=== PATIENT | male | born 1970 | race Hispanic/Latino ===

== ENCOUNTER → 2018-04-16 19:59 | Outpatient (CLI) | payer OTHER, SELFPAY | PROVIDERS: Family Provider Family Medicine; PCP Family Medicine; Referring Provider Urology; Visit Provider Urology | DX: R30.0 Dysuria (principal) | CPT/HCPCS: 87086 ==

== ENCOUNTER 2019-01-08 15:46 | Emergency (ER) | payer OTHER, SELFPAY ==
[2019-01-08 15:51] VITALS: BP 121/73; PULSE 64; RESP 17; TEMP 36.8; O2SAT 98; BMI 26.0
--- NOTE | 2019-01-08 16:30 | RAD_ITS ---
STUDY: X-RAY - RIGHT HAND, ATTENTION INDEX FINGER REASON FOR EXAM: Male, 48 years old. Laceration TECHNIQUE: 3 view(s) of the finger were obtained. COMPARISON: None. FINDINGS: Normal metacarpal head. Normal metacarpophalangeal joint. Normal proximal phalanx. Normal middle phalanx. There is an obliquely oriented fracture through the midshaft of the distal phalanx with minor separation of fracture fragments. There also appears to be questionable hairline fracture of the phalangeal tuft Normal proximal interphalangeal joint. Normal distal interphalangeal joint. RAD/Finger(s) Min 2 Views IMPRESSION: Nondisplaced fracture of the distal phalanx of the index finger Electronically Signed: Saeid Ovalles MD at 16:57 EDT , Service support ,
--- NOTE | 2019-01-08 16:33 | ED.DCSUM_ITS ---
History of Present Illness Chief Complaint: Laceration Informant: Patient, Friend Occurred: Today Mechanism/Context: Injury - blunt injury against metal, Work Related Onset: Today - JPTA Context: Sudden Onset Timing: Continuous Quality of Pain: - - sore Location: right index finger Current Severity: Moderate Maximum Severity: Severe Worsened by: palpation, moving Relieved by: remaining still Associated Symptoms: Negative for: Parasthesia, Weakness, Loss of Funtion Narrative: Kllmv-[id number] male states he was using a drill with his right hand, the drill somehow got stuck in the torque transmitted back into his hand, twisting it and causing it to go off the drill and hit something metal. Sustained a laceration. Tetanus Immunization: <5 years - 4-5 yrs ago Past Medical History - Allergies and Home Meds Allergies/Adverse Reactions: Allergies azithromycin [From Zithromax] Allergy (Verified 01/08/19 15:54) Swelling Primary Care Physician: Minh Marcum MD [Primary Care Provider] - Past Medical History: None Smoking Status: Never smoker - Family History Maternal Family History: Reports: No pertinent history Review of Systems Musculoskeletal: Reports: Extremity Pain Skin: Reports: Wounds Neurological: Denies: Weakness, Parasthesia Physical Exam Vital Signs/Narrative: Vital Signs Temp Pulse Resp BP Pulse Ox 01/08/19 15:51 98.3 F 64 17 121/73 H 98 General: Well nourished, Well developed, - - well-appearing, nad Head: Normocephalic, Atraumatic Extremeties: Tender distal phalanx right index finger, extensor is intact but not able to fully extend; patient states he had prior injury and the extent of his extension is at baseline for him. FDP and FDS intact. There is diffuse clubbing of all fingers. Skin: Trauma - 1 cm linear laceration across the dorsum of the distal phalanx of the right index finger, it is proximal to the nail fold, however, the base of the nail is seen within the laceration and appears to have been avulsed although it is still adherent to the nailbed which appears uninjured. Neurological: Alert, Oriented x3, Cranial nerves II-XII grossly intact, Normal Strength, Normal Sensation, Normal Gait Psychological: Normal affect, Normal Mood Diagnostic/Tx/Re-eval Clinical Impression(s) from Imaging Studies Finger X-Ray 01/08/19 16:30 IMPRESSION: Nondisplaced fracture of the distal phalanx of the index finger Electronically Signed: Saeid Ovalles MD at 16:57 EDT , Service support , - Medical Decision Making Digital block was performed prior to x-ray, which showed nondisplaced fracture through the center of the distal phalanx. This is directly where the laceration is, indicating an open fracture. On a finger, it is appropriate to follow-up as an outpatient with antibiotics to prophylax against infection. The laceration was repaired however there was some difficulty in the center of it due to very thin skin as it was very near the cuticle where the base of the nail appeared to come through. However after repairing and splinting, the skin was well opposed throughout. Sutures will need out 10 to 14 days, he will follow-up prior to t hat. Prescribed Duricef and [place], given appropriate discharge instructions. Procedures - Lacerations right index finger Length: 2 cm Depth: Sub Q Shape: irreg, mostly curvilinear Prep: Sterile Conditions, Chlorhexadine Laceration repair: Digital block - using 7.5cc of plain 2% lidocaine total, Irrigated Irrigated (ml): 60 Number of Sutures/Silva: 4 Suture Information: Ethilon, Simple, 5-0 Comment: Wound was opposed as best possible. Around the curvature at the radial aspect, near the cuticle/nail, the skin was very thin and ripped, and on second attempt it was unable to hold a suture. Skin was well opposed there given the sutures around it. Tolerated well, no other complications. - Upper Extremity Splints Upper Extremity Splint: Alumifoam Splint Fabrication: Fabricated Location: Right - Neurovascularly intact distally after placement. ED Disposition - Plan for ED Patient: Disposition: Home or Assisted Living Diagnosis: Open fracture of distal phalanx of right index finger, Laceration of right index finger with damage to nail Instructions: LACERATION, Hand, FRACTURE, Finger (Open) Prescriptions: Cefadroxil Hydrate [Duricef] 500 mg PO BID 5 Days #10 cap Transmission Status: Pending to [id number] Hydrocodone Bitart/Apap 5-325 [Pela[place] 5MG-325MG] 1 tablet PO Q4H PRN PRN 2 Days #10 tablet PRN Reason: Pain Transmission Status: Received by [id number] Referrals: Minh Marcum MD [Primary Care Provider] - [facility] - As soon as possible (call for appt)
[2019-01-08 17:53] VITALS: RESP 16
== END 2019-01-08 17:54 | disposition home or self-care (01) ==
PROVIDERS: Emergency Provider Emergency Medicine; Family Provider Family Medicine; PCP Family Medicine
DX: S62.660B Nondisplaced fracture of distal phalanx of right index finger, initial encounter for open fracture (principal); W26.8XXA Contact with other sharp object(s), not elsewhere classified, initial encounter; Y93.89 Activity, other specified; Y92.89 Other specified places as the place of occurrence of the external cause; Y99.0 Civilian activity done for income or pay
CPT/HCPCS: 12001; 73140; 99284

== ENCOUNTER → 2019-03-04 16:46 | Outpatient (CLI) | payer SELFPAY ==
[2019-03-04 16:32] VITALS: BMI 25.9
--- NOTE | 2019-03-04 16:51 | RAD_ITS ---
STUDY: X-RAY - RIGHT HAND, ATTENTION second FINGER REASON FOR EXAM: Male, 48 years old. Displaced fracture of distal phalanx of second digit TECHNIQUE: 3 view(s) of the finger were obtained. COMPARISON: None. FINDINGS: There is a fracture of the second digit distal phalanx, probably not extending intra-articularly. This is only seen on one view. Middle and proximal phalanges are normal. The joints are located. RAD/Finger(s) Min 2 Views IMPRESSION: Nondisplaced anatomically aligned presumably extra-articular distal phalangeal fracture. Electronically Signed: Lina Simmons, at 17:08 EDT Tel , Service support ,
== END ==
LOC: MTRAD 16:49
PROVIDERS: Family Provider Family Medicine; PCP Family Medicine; Referring Provider Physician Assistant; Visit Provider Physician Assistant
DX: S62.630B Displaced fracture of distal phalanx of right index finger, initial encounter for open fracture (principal)
CPT/HCPCS: 73140

== ENCOUNTER → 2019-03-22 08:40 | Outpatient (CLI) | payer OTHER, SELFPAY ==
[2019-03-22 08:16] VITALS: BMI 25.9
--- NOTE | 2019-03-22 08:41 | RAD_ITS ---
STUDY: X-RAY - RIGHT HAND, ATTENTION 2 FINGER REASON FOR EXAM: Male, 48 years old. Injury, pain TECHNIQUE: 3 view(s) of the finger were obtained. COMPARISON: None. FINDINGS: Normal metacarpal head. Normal metacarpophalangeal joint. Normal proximal phalanx. Normal middle phalanx. Acute nondisplaced oblique fracture of the distal phalanx. Normal proximal interphalangeal joint. Normal distal interphalangeal joint. RAD/Finger(s) Min 2 Views IMPRESSION: Acute nondisplaced oblique fracture of the distal phalanx. Electronically Signed: Rosendo Chavez MD at 11:39 EDT Tel , Service support ,
== END ==
PROVIDERS: Family Provider Family Medicine; PCP Family Medicine; Referring Provider Orthopaedic Surgery; Visit Provider Orthopaedic Surgery
DX: S62.630B Displaced fracture of distal phalanx of right index finger, initial encounter for open fracture (principal)
CPT/HCPCS: 73140

== ENCOUNTER 2019-06-23 12:27 | Emergency (ER) | payer OTHER, SELFPAY ==
[2019-03-22 08:16] VITALS: BMI 25.9
[2019-06-23 12:28] VITALS: BP 120/71; PULSE 72; PULSE 76; RESP 17; RESP 18; TEMP 37.2; O2SAT 96; O2SAT 98; BMI 24.7
--- NOTE | 2019-06-23 13:35 | ED.DCSUM_ITS ---
History of Present Illness Narrative: 48-year-old male presents with concern for headache. States is been present for 2 weeks. States that the severity is wax and wane. States that he wakes up and goes to sleep with this headache. States he is also had a mild cough as well as myalgias. Denies any head trauma. Began after eating at work approximately 2 weeks ago. Denies a history of migraines. Seen by his primary care physician 3 days ago and advised to go to the ER if it continues. Do blood work at that time but they are unclear of the results. Any neck stiffness, fever, chills. Patient is also complaining of tingling in his left lower extremity. States it is been intermittent over this period of time. Denies any loss of motor function. Denies any vision change. <Andre Valdivia - Last Filed: 06/23/19 18:20> <Brien Carrera - Last Filed: 06/23/19 23:35> Chief Complaint: Headache Past Medical History Prior records reviewed: Yes Past Medical History: - - GERD and Barretts esophagus Surgical History: no surgical history Lives: Spouse/ Significant Other Smoking Status: Never smoker Alcohol: Occasional Drugs: None - Family History Maternal Family History: Reports: No pertinent history <Andre Valdivia - Last Filed: 06/23/19 18:20> <Brien Carrera - Last Filed: 06/23/19 23:35> - Allergies and Home Meds Allergies/Adverse Reactions: Allergies azithromycin [From Zithromax] Allergy (Verified 06/23/19 12:28) Swelling Primary Care Physician: Minh Marcum MD [Primary Care Provider] - Review of Systems General: Denies: Chills, Fever, Sweats Eyes: Denies: Visual changes - bilaterally, Diplopia ENT: Denies: Rhinorrhea, Sore throat Cardiovascular: Denies: Chest pain, Palpitations Respiratory: Denies: Dyspnea, Cough, Dyspnea on exertion Gastrointestinal: Denies: Abdominal pain, Nausea, Vomiting, Diarrhea, Melena, Hematochezia Genitourinary: Denies: Dysuria, Hematuria, Frequency Musculoskeletal: Reports: Myalgias. Denies: Back pain, Extremity Pain Skin: Denies: Rash, Wounds Neurological: Reports: Headache, Parasthesia. Denies: Weakness, Numbness <Andre Valdivia - Last Filed: 06/23/19 18:20> Physical Exam Vital Signs/Narrative: Vital Signs Temp Pulse Resp BP Pulse Ox 06/23/19 12:28 98.9 F 76 17 120/71 96 General: Well nourished, Well developed, No Acute Distress Head: Normocephalic, Atraumatic Eyes: Perrl, EOMI ENT: Moist mucous membranes, No rhinorrhea Neck: Supple, Nontender Cardiovascular: Regular rate, Regular rhythm, No murmurs Respiratory: No distress, CTA bilaterally, Chest nontender Abdomen: Soft, Nontender, Nondistended, Normal bowel sounds Back: Nontender, Normal Inspection Extremities: Nontender, No edema Skin: Normal color, No rash Neurological: Alert, Oriented x3, Cranial nerves II-XII grossly intact, Normal Strength, Normal Sensation Psychological: Normal affect, Normal Mood <Andre Valdivia - Last Filed: 06/23/19 18:20> Diagnostic/Tx/Re-eval Impressions Brain CT 06/23/19 13:37 IMPRESSION: No acute intracranial hemorrhage or mass effect. Electronically Signed: Ovidio Hazel MD ([place]) at 15:21 EST , Service support , 06/23/19 13:37 Brain/Head without Contrast [CT] Stat 06/23/19 13:42 Mucosa - Nasopharyngeal Influenza Types A,B Direct FA (MERCEDES) - Final Laboratory Results 06/23/19 06/23/19 13:50 13:50 WBC 5.2 RBC 5.00 Hgb 15.7 Hct 44.1 MCV 88.2 MCH 31.4 MCHC 35.6 RDW Std Deviation 36.1 RDW Coeff of Niko 11.4 L Plt Count 199 MPV 9.5 Immature Gran % (Auto) 0.200 Neut % (Auto) 49.2 Lymph % (Auto) 40.0 [place] % (Auto) 9.6 Eos % (Auto) 0.8 Baso % (Auto) 0.2 Absolute Neuts (auto) 2.6 Absolute Lymphs (auto) 2.09 Nucleated RBC % 0 Sodium 143 Potassium 3.7 Chloride 108 H Carbon Dioxide 33.0 H Anion Gap 2 L BUN 13 Creatinine 1.01 Estim Creat Clear Calc 88.42 Est GFR (MDRD) Af Amer 102 Est GFR (MDRD) Non-Af 84 BUN/Creatinine Ratio 12.9 Glucose 97 Calcium 8.9 - Medical Decision Making Patient appears well nontoxic. Vital signs within normal limits. No focal neurologic deficit. CT brain negative. History not consistent with subarachnoid hemorrhage. Patient first was given Tylenol as well as fluid bolus. Lab work within normal limits. Patient was then given Toradol, Reglan, and Benadryl. This did completely resolve his symptoms. Patient will be asked to follow-up with his primary care provider within the next 2 to 3 days. Asked to return for new or worsening symptoms. Patient and family agreeable and discharged home in stable condition. <Andre Valdivia - Last Filed: 06/23/19 18:20> - Medical Decision Making Patient was seen with me. I did a [id number] examination with the patient. Patient complains of a headache. Patient states the pain is diffuse across his head. Patient denies any history of migraine headaches. Patient denies any paresthesias or weakness. Patient denies any fevers or chills. Vital signs are stable. Patient is afebrile. Patient is in no acute distress. Cranial nerves II through XII are intact. Strength is 5/5 bilateral knee upper and lower extremities. There are no sensory deficits noted. Heart was regular rate and rhythm. Lungs are clear and equal bilaterally. CT scan of the brain was obtained and did not show any acute intracranial abnormality. Patient was given IV fluids. Patient was given Toradol, Reglan, and Benadryl. Patient states his headache has resolved. Patient was instructed to follow-up with his primary care physician in 5 to 7 days. Patient understood and was agreeable with the plan. All questions were answered. <Brien Carrera - Last Filed: 06/23/19 23:35> ED Disposition <Andre Valdivia - Last Filed: 06/23/19 18:20> <Brien Carrera - Last Filed: 06/23/19 23:35> - Plan for ED Patient: Disposition: Home or Assisted Living Diagnosis: Headache Instructions: HEADACHE, Unspecified Referrals: Minh Marcum MD [Primary Care Provider] -
--- NOTE | 2019-06-23 13:37 | CT_ITS ---
STUDY: CT BRAIN WITHOUT CONTRAST REASON FOR EXAM: Male, 48 years old. HEADACHE X 2 WEEKS RADIATION DOSAGE (If Supplied By Facility): CTDIvol = ( 44.99 ) mGy, DLP = ( 745.49 ) mGycm TECHNIQUE: Transaxial CT imaging of the brain was performed without administration of intravenous contrast material. Individualized dose optimization techniques were used for this CT. COMPARISON: No relevant priors. FINDINGS: Normal soft tissue structures. Normal calvarium. Normal size ventricles and extra-axial spaces for the patient''s age. Normal white matter tracts of the cerebral hemispheres. Normal basal ganglia and thalami. Normal brainstem. Normal cerebellum. There is no intracranial hemorrhage. There are no findings of an acute ischemic infarction. Normal visualized paranasal sinuses. CT/Brain/Head without Contrast IMPRESSION: No acute intracranial hemorrhage or mass effect. Electronically Signed: Ovidio Hazel MD ([place]) at 15:21 EST , Service support ,
[2019-06-23] MEDS: 0.9% Normal Saline 1,000 ML 999 ML IV (13:54)
[2019-06-23] MEDS: Acetaminophen 500 MG Tablet 1000 MG PO (13:55)
[2019-06-23 14:04] LABS: Absolute Lymphocyte Count 2.09 X10^3/uL (0.83-4.51); Absolute Neutrophil Count 2.6 X10^3/uL (2.0-7.7); Basophil# 0.01 X10^3/uL; Basophil% 0.2 % (0-1); Eosinophil# 0.04 X10^3/uL; Eosinophils% 0.8 % (0-5); Hematocrit 44.1 % (40-54); Hemoglobin 15.7 g/dL (13.0-16.5); Lymphocyte # 2.09 X10^3/ul (4.0); Mean Corp Hgb Conc 35.6 g/dL (32-36); Mean Corpuscular Hgb 31.4 pg (27.0-32.0); Mean Corpuscular Volume 88.2 fL (80-94); Mean Platelet Vol. 9.5 fl (6.2-12.0); Monocyte% 9.6 % (0-10); NRBC Flagged by Analyzer 0 % (0-5); Neutrophil # 2.57 X10^3/uL (2.7-7.7); Neutrophil % 49.2 % (47-70); Platelet Count 199 K/mm3 (150-450); RBC Distribution Width CV 11.4 % (11.6-14.6); RBC Distribution Width SD 36.1 fl (35.1-43.9); White Blood Count 5.2 K/mm3 (4.4-11.0)
[2019-06-23 14:15] LABS: Anion Gap 2 (5-15); BUN 13 mg/dL (7-18); BUN/Creat Ratio 12.9 RATIO (10-20); Calcium,Total 8.9 mg/dL (8.5-10.1); Chloride 108 mmol/L (98-107); Creatinine, Serum 1.01 mg/dL (0.70-1.30); EST Glomerular Filtration Rate 84 mL/min (>60); Est Glom Filt Rate - Afr Amer 102 mL/min (>60); Estimated Creatinine Clearance 88.42 ml/min; Glucose 97 mg/dL (74-106); Potassium 3.7 mmol/L (3.5-5.1); Sodium Level 143 mmol/L (136-145)
[2019-06-23 14:45] VITALS: RESP 18
[2019-06-23] MEDS: Metoclopramide 10 MG/2 ML Vial 5 MG IV (17:03)
[2019-06-23] MEDS: Ketorolac 15 MG/ML Vial IV (17:03)
[2019-06-23] MEDS: DiphenhydrAMINE 50 MG/ML Syringe 25 MG IV (17:03)
[2019-06-23 17:13] VITALS: RESP 18
== END 2019-06-23 18:14 | disposition home or self-care (01) ==
PROVIDERS: Emergency Provider Emergency Medicine; Family Provider Family Medicine; PCP Family Medicine
DX: R51 Headache (principal); R05 Cough; M79.10 Myalgia, unspecified site; R20.2 Paresthesia of skin; K21.9 Gastro-esophageal reflux disease without esophagitis; Z87.19 Personal history of other diseases of the digestive system
CPT/HCPCS: 70450; 80048; 85025; 87804; 96361; 96374; 96375; 99283; J7030; A4216

== ENCOUNTER 2019-09-11 03:13 | Emergency (ER) | payer OTHER, SELFPAY ==
[2019-09-11 03:14] VITALS: BP 158/87; PULSE 75; RESP 14; TEMP 36.6; O2SAT 99; BMI 24.1
--- NOTE | 2019-09-11 03:24 | RAD_ITS ---
STUDY: X-RAY CHEST REASON FOR EXAM: Male, 49 years old. Back pain with shortness of breath for 3 days. TECHNIQUE: PA and lateral chest. COMPARISON: February 09, 2017. FINDINGS: The lungs are clear and expanded. There is no demonstrated pleural abnormality. Normal size heart. Normal mediastinum and trenton. Normal visualized pulmonary arteries. Normal visualized aortic arch and descending thoracic aorta. Normal visualized thoracic spine. Normal visualized ribs, clavicles, and shoulders. There is no demonstrated abnormality of the visualized soft tissue structures of the upper abdomen. RAD/Chest PA and Lateral IMPRESSION: Normal x-ray examination of the chest. Electronically Signed: Walter Akbar MD at 3:55 EDT , Service support ,
--- NOTE | 2019-09-11 03:24 | EKG12_ITS ---
Test Reason : BACK PAIN Blood Pressure : / mmHG Vent. Rate : 063 BPM Atrial Rate : 063 BPM P-R Int : 158 ms QRS Dur : 098 ms QT Int : 398 ms P-R-T Axes : 052 003 021 degrees QTc Int : 407 ms Normal sinus rhythm Normal ECG Confirmed by LETTY SURESH, RAMIRO ([id number]), movie editor REGINALD BERRIOS ([id number]) on 09/16/2019 11:21:12 AM Referred By: GERRY Confirmed By:YARITZA SAENZ MD
--- NOTE | 2019-09-11 03:25 | ED.VIS.GEN ---
History of Present Illness Chief Complaint: Back Informant: Patient Narrative: Stated for the last 2 days he has had mid back pain. Is in the thoracic area. Is not movement related. Only bothers him if he takes a deep breath. Feels a dull sensation. Denies any chest pain. Denies shortness of breath. Denies any symptoms at rest. No home treatment. Current severity is mild. He has had this before with pneumonia but does not have any pneumonia symptoms. No injury to his back. It does not hurt to bend or twist or push on it. - Past Medical History (1) Hypokalemia Status: Acute (2) Influenza A Status: Acute (3) Laceration of right index finger without foreign body with damage to nail Status: Acute (4) Open displaced fracture of distal phalanx of right index finger Status: Acute (5) Pneumonia Status: Acute Past Medical History - Allergies and Home Meds Allergies/Adverse Reactions: Allergies azithromycin [From Zithromax] Allergy (Verified 09/11/19 03:13) Swelling Primary Care Physician: Minh Marcum MD [Primary Care Provider] - Prior records reviewed: Yes Past Medical History: - - See problem list, acid reflux Surgical History: no surgical history Smoking Status: Never smoker Alcohol: None Drugs: None - Family History Maternal Family History: Reports: No pertinent history Review of Systems General: Denies: Chills, Fever, Sweats Eyes: Denies: Visual changes - bilaterally, Diplopia ENT: Denies: Rhinorrhea, Sore throat Cardiovascular: Denies: Chest pain, Palpitations Respiratory: Denies: Dyspnea, Cough, Dyspnea on exertion Gastrointestinal: Denies: Abdominal pain, Nausea, Vomiting, Diarrhea, Melena, Hematochezia Genitourinary: Denies: Dysuria, Hematuria, Frequency Musculoskeletal: Reports: Back pain. Denies: Extremity Pain Skin: Denies: Rash, Wounds Neurological: Denies: Headache, Weakness, Numbness Physical Exam Vital Signs/Narrative: Vital Signs Temp Pulse Resp BP Pulse Ox 09/11/19 03:14 97.9 F 75 14 158/87 H 99 General: Well nourished, Well developed, No Acute Distress Head: Normocephalic, Atraumatic Eyes: Perrl, EOMI ENT: Moist mucous membranes, No rhinorrhea Neck: Supple, Nontender Cardiovascular: Regular rate, Regular rhythm, No murmurs Respiratory: No distress, CTA bilaterally, Chest nontender Abdomen: Soft, Nontender, Nondistended, Normal bowel sounds Back: Nontender, Normal Inspection Extremities: Nontender, No edema Skin: Normal color, No rash Neurological: Alert, Oriented x3, Cranial nerves II-XII grossly intact, Normal Strength, Normal Sensation Psychological: Normal affect, Normal Mood Diagnostic/Tx/Re-eval - Medical Decision Making Patient given ibuprofen. EKG and chest x-ray obtained. EKG shows sinus rhythm at a rate of 63 with no acute ischemia or arrhythmia. Chest x-ray normal. At this time the patient does not have a pneumothorax. He has all back pain worse with taking a deep breath. Is likely musculoskeletal or pleurisy versus costochondritis. Patient will continue anti-inflammatory ibuprofen at home and follow-up as an outpatient. I do not feel he has an acute emergency or needs further lab work or imaging. Patient is in agreement to follow-up as an outpatient ED Disposition - Plan for ED Patient: Disposition: Home or Assisted Living Diagnosis: Thoracic back pain Instructions: BACK PAIN (Acute or Chronic) Referrals: Minh Marcum MD [Primary Care Provider] -
--- NOTE | 2019-09-11 03:27 | ED.RN ---
NO OLD EKGS IN MUSE
[2019-09-11] MEDS: Ibuprofen 600 MG Tablet PO (03:28)
[2019-09-11 04:09] VITALS: RESP 14
== END 2019-09-11 04:20 | disposition home or self-care (01) ==
PROVIDERS: Emergency Provider Emergency Medicine; PCP Family Medicine
DX: M54.6 Pain in thoracic spine (principal); K21.9 Gastro-esophageal reflux disease without esophagitis; Z88.1 Allergy status to other antibiotic agents
CPT/HCPCS: 71046; 93005; 99283

== ENCOUNTER → 2020-07-27 15:40 | Outpatient (CLI) | payer BC, SELFPAY ==
[2020-07-27 17:18] LABS: PSA,Total - Annual Screen 0.39 ng/mL (0.00-4.00)
== END ==
PROVIDERS: PCP Family Medicine; Referring Provider Urology; Visit Provider Urology
DX: Z12.5 Encounter for screening for malignant neoplasm of prostate (principal)
CPT/HCPCS: 36415; 84153; G0103

== ENCOUNTER 2020-08-05 15:35 | Emergency (ER) | payer BC, SELFPAY ==
[2020-08-05 15:35] VITALS: BP 150/62; PULSE 71; RESP 16; TEMP 36.7; O2SAT 100
[2020-08-05 15:36] VITALS: BP 150/62; PULSE 79; RESP 16; TEMP 36.7; O2SAT 99; BMI 24.5
[2020-08-05 15:55] VITALS: O2SAT 98
--- NOTE | 2020-08-05 15:55 | EKG12_ITS ---
Test Reason : CHEST PAIN Blood Pressure : / mmHG Vent. Rate : 074 BPM Atrial Rate : 074 BPM P-R Int : 154 ms QRS Dur : 096 ms QT Int : 384 ms P-R-T Axes : 059 003 029 degrees QTc Int : 426 ms Normal sinus rhythm Normal ECG Confirmed by LETTY SURESH, RAMIRO ([id number]), editor department GUY WYNNE ([id number]) on 08/07/2020 8:43:13 AM Referred By: SERGEY ORTIZ Confirmed By:YARITZA SAENZ MD
[2020-08-05] MEDS: Mag Hydrox/Al Hydrox/Simeth 30 ML UDC PO (16:10)
--- NOTE | 2020-08-05 16:15 | ED.DCSUM_ITS ---
- ER Visit Summary Date of Service: 08/05/20 Chief Complaint: Chest pain History of Present Illness: The patient is a [address] Marcum. He reports he has left-sided chest pain began 3 days ago. Is a constant throbbing is 4-10 currently and at worst. Is worsened by nothing including exertion and deep breaths. Is relieved by vomiting. Patient reports that he is vomited multiple times. There is no been no blood in his emesis. Is not vomited today. He denies any shortness of breath or diaphoresis with this. Patient does have a history of reflux and Singh's esophagus. He reports he has had dysuria for the past 3 weeks. He went to urgent care and Dr. Cruz and had blood work and a urinalysis. He was placed on Bactrim and Aleve which she is still taking. He also reports he is taking aspirin for his dysuria. He denies any possibility of STD or insertive anal intercourse. Physical Examination: Vitals: Stable. Afebrile. General: Well-nourished and well-developed. Head: Normocephalic atraumatic. Neck: Supple, no lymphadenopathy. No JVD. Nontender. Cardiovascular: Regular rate and rhythm. No murmurs. Respiratory: No respiratory distress. Clear to auscultation bilaterally. Abdominal: Soft, nontender, nondistended, normal bowel sounds. No guarding, re bound, or peritoneal signs. Back: Nontender. Extremities: Nontender, no edema. Skin: Normal color, no rash. Neurologic: Alert and oriented ?3. Cranial nerves II through XII are intact. Normal strength and sensation. Psych: Normal affect. Test Results: EKG is sinus at [address] changes. Troponin is negative. Chem-7 is normal. CBC is normal. UA shows ketones. Clinical Impression(s) from Imaging Studies Chest X-Ray 08/05/20 16:19 IMPRESSION: No acute pulmonary process Electronically Signed: Blanco Sandoval MD at 16:34 EST , Service support , Emergency Department Course and Treatment: I suspect the patient's symptoms are more from his reflux and Singh's esophagus combined with Aleve and aspirin. He was not given aspirin p.o. He was given a GI cocktail and is resting comfortably. Treatment Plan: I have instructed the patient to continue his Protonix and Carafate. Stop taking aspirin and Aleve. Use Tylenol for pain. Follow-up with his primary care physician in 1 week for another exam. Return to the emergency department for any worsening symptoms. Disposition: To home in improved and stable condition. Impression: 1. Atypical chest pain. 2. History of Singh's esophagus. This note was generated with [employer] MOD dictation software. It may contain incorrect words, spelling, and punctuation that were not noted in review of the chart prior to signing ED Disposition - Plan for ED Patient: Instructions: ED Chest Pain, Uncertain Cause Referrals: Minh Marcum MD [Primary Care Provider] - 1 Week Print Language: Turkmen
--- NOTE | 2020-08-05 16:19 | RAD_ITS ---
STUDY: X-RAY CHEST REASON FOR EXAM: Male, 49 years old. Chest tightness x3 days TECHNIQUE: Single AP portable view of the chest. COMPARISON: None. FINDINGS: EKG leads overlie the chest The lungs are clear and expanded. There is no demonstrated pleural abnormality. Normal size heart. Normal mediastinum and trenton. Normal visualized pulmonary arteries. Normal visualized aortic arch and descending thoracic aorta. Normal visualized thoracic spine. Normal visualized ribs, clavicles, and shoulders. There is no demonstrated abnormality of the visualized soft tissue structures of the upper abdomen. RAD/Chest 1 View (Portable) IMPRESSION: No acute pulmonary process Electronically Signed: Blanco Sandoval MD at 16:34 EST , Service support ,
[2020-08-05 16:20] LABS: Bacteria 0 SEEN /hpf (None Seen); Mucous, Urine 0 SEEN /hpf (<or=2+); Red Blood Cells-Urine 0 SEEN /hpf (0-5); White Blood Cells 0 SEEN /hpf (0-5)
[2020-08-05 16:23] LABS: Color, Urine Yellow (Yellow); Glucose, Dipstick Normal (Normal); Ketone-Dipstick 5 mg/dl (Negative); Leukocyte Esterase-Dipstick Negative /ul (Negative); Nitrite-Dipstick Negative (Negative); Occult Blood-Urine Negative /ul (Negative); Protein-Dipstick Negative (Negative); Specific Gravity, Urine 1.005 (1.002-1.030); Urine Bilirubin Dipstick Negative (Negative); Urine Clarity Sl. Cloudy (Clear); Urine Urobilinogen Normal (Normal)
[2020-08-05 16:31] LABS: Absolute Lymphocyte Count 1.96 X10^3/uL (0.83-4.51); Absolute Neutrophil Count 2.7 X10^3/uL (2.0-7.7); Basophil# 0.02 X10^3/uL; Basophil% 0.4 % (0-1); Eosinophil# 0.09 X10^3/uL; Eosinophils% 1.7 % (0-5); Hematocrit 42.9 % (40-54); Hemoglobin 14.5 g/dL (13.0-16.5); Lymphocyte # 1.96 X10^3/ul (4.0); Lymphocyte % 37.5 % (19-41); Mean Corp Hgb Conc 33.8 g/dL (32-36); Mean Corpuscular Hgb 30.9 pg (27.0-32.0); Mean Corpuscular Volume 91.3 fL (80-94); Mean Platelet Vol. 9.9 fl (6.2-12.0); Monocyte# 0.47 X10^3/uL; NRBC Flagged by Analyzer 0 % (0-5); Neutrophil # 2.68 X10^3/uL (2.7-7.7); Neutrophil % 51.4 % (47-70); Platelet Count 198 K/mm3 (150-450); RBC Distribution Width CV 11.5 % (11.6-14.6); RBC Distribution Width SD 39.2 fl (35.1-43.9); White Blood Count 5.2 K/mm3 (4.4-11.0)
[2020-08-05 16:40] LABS: Anion Gap 4 (5-15); BUN 16 mg/dL (7-18); BUN/Creat Ratio 13.6 RATIO (10-20); Calcium,Total 9.4 mg/dL (8.5-10.1); Chloride 104 mmol/L (98-107); Creatinine, Serum 1.18 mg/dL (0.70-1.30); EST Glomerular Filtration Rate 70 mL/min (>60); Est Glom Filt Rate - Afr Amer 85 mL/min (>60); Estimated Creatinine Clearance 74.87 ml/min; Glucose 96 mg/dL (74-106); Sodium Level 139 mmol/L (136-145)
[2020-08-05 16:53] LABS: Amorphous Sediment 1+ PHOS; Squamous Epithelial Cells - UA 0-5 SEEN /hpf (0-5)
[2020-08-05 17:12] VITALS: BP 116/83; PULSE 72; RESP 18; O2SAT 100
== END 2020-08-05 17:15 | disposition home or self-care (01) ==
LOC: ED 16:19
PROVIDERS: Emergency Provider Emergency Medicine; PCP Family Medicine
DX: R07.89 Other chest pain (principal); Z87.19 Personal history of other diseases of the digestive system; Z79.82 Long term (current) use of aspirin; K21.9 Gastro-esophageal reflux disease without esophagitis
CPT/HCPCS: 71045; 80048; 81001; 84484; 85025; 93005; 99285; A4216

== ENCOUNTER 2020-09-19 17:47 | Emergency (ER) | payer BC, SELFPAY ==
[2020-09-19 17:49] VITALS: BP 124/70; PULSE 64; RESP 16; TEMP 36.9; O2SAT 96; BMI 23.8
--- NOTE | 2020-09-19 18:16 | EKG12_ITS ---
Test Reason : CP Blood Pressure : / mmHG Vent. Rate : 059 BPM Atrial Rate : 059 BPM P-R Int : 154 ms QRS Dur : 096 ms QT Int : 400 ms P-R-T Axes : 058 012 040 degrees QTc Int : 396 ms Sinus bradycardia Otherwise normal ECG Confirmed by LETTY SURESH, RAMIRO ([id number]), food expeditor REGINALD BERRIOS ([id number]) on 10/02/2020 3:03:39 PM Referred By: MISA Confirmed By:YARITZA SAENZ MD
[2020-09-19] MEDS: 0.9% Normal Saline 1,000 ML 1000 ML IV (18:40)
[2020-09-19] MEDS: Mag Hydrox/Al Hydrox/Simeth 30 ML UDC PO (18:41)
[2020-09-19] MEDS: Ondansetron 4 MG/2 ML Vial IV (18:41)
[2020-09-19 18:56] LABS: Absolute Lymphocyte Count 2.35 X10^3/uL (0.83-4.51); Absolute Neutrophil Count 2.1 X10^3/uL (2.0-7.7); Basophil# 0.01 X10^3/uL; Basophil% 0.2 % (0-1); Eosinophil# 0.08 X10^3/uL; Eosinophils% 1.6 % (0-5); Hematocrit 39.8 % (40-54); Lymphocyte # 2.35 X10^3/ul (4.0); Mean Corp Hgb Conc 35.2 g/dL (32-36); Mean Corpuscular Hgb 32.1 pg (27.0-32.0); Mean Corpuscular Volume 91.3 fL (80-94); Mean Platelet Vol. 9.9 fl (6.2-12.0); Monocyte# 0.49 X10^3/uL; Monocyte% 9.8 % (0-10); NRBC Flagged by Analyzer 0 % (0-5); Neutrophil # 2.06 X10^3/uL (2.7-7.7); Neutrophil % 41.2 % (47-70); Platelet Count 190 K/mm3 (150-450); RBC Distribution Width CV 11.2 % (11.6-14.6); RBC Distribution Width SD 37.6 fl (35.1-43.9); Red Blood Count 4.36 M/mm3 (4.6-6.2)
[2020-09-19 19:13] LABS: ALB/GLOB Ratio 1.4 RATIO (0.9-2.4); AST(SGOT) 14 U/L (15-37); Alanine Aminotransfer ALT/SGPT 29 U/L (16-61); Alkaline Phosphatase 75 U/L (45-117); Anion Gap 3 (5-15); BUN 16 mg/dL (7-18); BUN/Creat Ratio 13.4 RATIO (10-20); Calcium,Total 8.6 mg/dL (8.5-10.1); Chloride 107 mmol/L (98-107); Creatinine, Serum 1.19 mg/dL (0.70-1.30); EST Glomerular Filtration Rate 69 mL/min (>60); Est Glom Filt Rate - Afr Amer 84 mL/min (>60); Estimated Creatinine Clearance 73.45 ml/min; Globulin 2.8 g/dL (2.2-4.2); Glucose 112 mg/dL (74-106); Lipase 85 U/L (73-393); Potassium 3.5 mmol/L (3.5-5.1); Protein, Total 6.8 g/dL (6.4-8.2); Sodium Level 141 mmol/L (136-145)
--- NOTE | 2020-09-19 19:15 | RAD_ITS ---
HISTORY: Chest pain x 1 month ADDITIONAL HISTORY: None provided. EXAMINATION/TECHNIQUE: XR Chest 1 View AP/PA Number of images including paperwork: 1 COMPARISON: None FINDINGS: LUNGS AND PLEURA: No consolidation, mass or pleural effusion. CARDIAC SILHOUETTE: Unremarkable. MEDIASTINUM AND LEXIS: Unremarkable. UPPER ABDOMEN: Unremarkable. SKELETON AND SOFT TISSUES: No acute skeletal findings. OTHER DEVICES AND HARDWARE: None. RAD/Chest 1 View (Portable) IMPRESSION: No acute cardiopulmonary abnormality. at 2005 Reported and signed by: Fior Kwong MD Electronically Signed: Fior Kwong MD at 20:04 EDT Tel , Service support ,
[2020-09-19 19:48] VITALS: BP 120/79; PULSE 59; RESP 18; O2SAT 100
--- NOTE | 2020-09-19 19:53 | ED.VISSUMM ---
- ER Visit Summary Date of Service: 09/19/20 Chief Complaint: Chest pain and abdominal pain History of Present Illness: The patient is a [address] Marcum. He has a history of Singh's esophagus. He reports he is on Carafate and Protonix. He reports that he has had chest pain and epigastric pain has been present for a month. Is a continuous throbbing pain. Is 7 out of 10 currently and at worst. It is worsened by eating or bending. Is relieved by vomiting. He states he is vomiting approximately once a day. No blood in his emesis. No diarrhea. No melena or hematochezia. Physical Examination: Vitals: Stable. Afebrile. General: Well-nourished and well-developed. Head: Normocephalic atraumatic. Neck: Supple, no lymphadenopathy. No JVD. Nontender. Cardiovascular: Regular rate and rhythm. No murmurs. Respiratory: No respiratory distress. Clear to auscultation bilaterally. Abdominal: Soft, mild epigastric tenderness to palpation, nondistended, normal bowel sounds. No guarding, rebound, or peritoneal signs. Back: Nontender. Extremities: Nontender, no edema. Skin: Normal color, no rash. Neurologic: Alert and oriented ?3. Cranial nerves II through XII are intact. Normal strength and sensation. Psych: Normal affect. Test Results: AG sinus bradycardia [address] changes. Is unchanged from last month. Troponin is negative. Chem-7 shows a glucose of 112. LFTs show an AST of 14. Lipase is 85. CBC shows a hematocrit of 39.8, second neutrophils 41, lymphocytes 47. Chest x-ray shows no acute disease. Emergency Department Course and Treatment: Patient was treated with a GI cocktail. He is resting comfortably. Treatment Plan: Patient had endoscopy [address] Holland. He is instructed to follow-up with Dr. Holland for further evaluation to make sure there has not been progression of his Singh's esophagus and that he does not have an ulcer. Instructed continue his Carafate and Protonix. He is also given the name of Dr. Saenz here in [facility] [address] to see for endoscopy if he is unable to see Dr. Holland. Follow-up his primary care physician in 3 to 5 days for another exam. Return to the emergency department for any worsening symptoms. Disposition: To home in improved and stable condition. Impression: 1. Atypical chest pain. 2. Epigastric pain. 3. History of Singh's esophagus. This note was generated with [employer] dictation software. It may contain incorrect words, spelling, and punctuation that were not noted in review of the chart prior to signing ED Disposition - Plan for ED Patient: Instructions: ED Epigastric Pain (Uncertain Cause) Referrals: Minh Marcum MD [Primary Care Provider] - 3-5 Days Emely Saenz MD [STAFF PHYSICIAN] - Trev Holland MD [CONSULTING PHYSICIAN] - As soon as possible Print Language: Chilean
[2020-09-19 20:00] VITALS: BP 128/64; PULSE 62; RESP 16; O2SAT 98
== END 2020-09-19 20:19 | disposition home or self-care (01) ==
PROVIDERS: Emergency Provider Emergency Medicine; PCP Family Medicine
DX: R07.89 Other chest pain (principal); R10.13 Epigastric pain; R11.10 Vomiting, unspecified; Z87.19 Personal history of other diseases of the digestive system
CPT/HCPCS: 71045; 80053; 83690; 84484; 85025; 93005; 96361; 96374; 99284; J7030; A4216; J2405

== ENCOUNTER 2021-04-17 12:47 | Emergency (ER) | payer BC, SELFPAY ==
[2021-04-17 12:47] VITALS: BP 130/77; PULSE 66; RESP 18; TEMP 36.2; O2SAT 100; BMI 24.0
[2021-04-17 14:07] LABS: Bacteria 0 SEEN /hpf (None Seen); Mucous, Urine 0 SEEN /hpf (<or=2+); Red Blood Cells-Urine 0 SEEN /hpf (0-5); Squamous Epithelial Cells - UA 0 SEEN /hpf (0-5); White Blood Cells 0 SEEN /hpf (0-5)
[2021-04-17 14:09] LABS: Color, Urine Yellow (Yellow); Glucose, Dipstick Normal (Normal); Ketone-Dipstick Negative (Negative); Leukocyte Esterase-Dipstick Negative /ul (Negative); Nitrite-Dipstick Negative (Negative); Occult Blood-Urine Negative /ul (Negative); Protein-Dipstick Negative (Negative); Urine Bilirubin Dipstick Negative (Negative); Urine Clarity Clear (Clear); Urine Urobilinogen Normal (Normal); Urine pH 6.5 (5.0 - 8.0)
--- NOTE | 2021-04-17 15:39 | EDS_ITS ---
HPI History of Present Illness Chief Complaint: Complaint Detail of Chief Complaint: Dysuria and suprapubic pain x1 week Informant: patient Pain Onset: Weeks (1.5 weeks) Context: Sudden Onset Timing: Intermittent Current Severity: Moderate Maximum Severity: Moderate Worsened by: Urination Relieved by: Not urinating Appearance Lesion(s): No Genital Edema: No Related History Sexually: Inactive Unprotected Sex: No STD: No Epididymitis: No Bladder/Kidney Infection: No Enlarged Prostate: No Prostate Infection: No Prostate Cancer: No Narrative Narrative: Patient is a 50-year-old male from [place] who presents with dysuria for the past 10 days. He was seen at the [facility] urgent care. Urine was obtained and states it was normal. He states he is not sexually active. He denies history of STI. He denies history of trauma. He denies history of orchitis or epididymitis. He denies any fever, chills or night sweats. Denies weight gain or weight loss. He denies history of hepatitis. He states he had a similar presentation in the past. There was no etiology found. Prior similar symptoms: Yes Recent Illness/Hospitalization: No PFSH PFSH Medical History (Updated 04/17/21 @ 16:[address] Regis Elizabeth MD) Stomach ulcer Home Medications phenazopyridine [Pyridium] 200 mg PO TID #10 tab 04/17/21 [Rx Last Taken Unknown] Allergy/AdvReac Type Severity Reaction Status Date / Time azithromycin [From Zithromax] Allergy Swelling Verified 01/29/21 14:19 Social History (Updated 04/17/21 @ 15:[address] Regis Elizabeth MD) household members: none Smoking Status: Never smoker alcohol intake: never substance use type: does not use ROS ROS ED Constitutional Constitutional ED: Denies chills, fever(s), subjective or sweats Eyes Eyes: Denies blurry vision or change in vision ENT ENT ED: Denies ear pain, rhinorrhea or sore throat Cardiovascular Cardiovascular: Denies chest pain Respiratory/Chest Respiratory/Chest: Denies cough or dyspnea Gastrointestinal Gastrointestinal: Reports abdominal pain; Denies diarrhea, nausea or vomiting Genitourinary Genitourinary ED: Reports dysuria; Denies hematuria or urinary frequency Musculoskeletal Musculoskeletal: Denies arthralgias, back pain, myalgias or neck pain Integumentary Denies rash EXAM Physical Exam Const Vital Signs: 04/17/21 12:47 Temperature 97.1 F L Temperature Source Temporal Pulse Rate 66 Respiratory Rate 18 Blood Pressure 130/77 H Blood Pressure Mean 94 Pulse Ox 100 Oxygen Delivery Method Room Air Positive well nourished and well developed General Appearance ED: well developed and NAD; Negative for pallor HEENT normocephalic and atraumatic Eyes PERRL and EOMs intact bilaterally General Eye ED: Negative for pale conjunctiva or scleral icterus Neck supple Resp normal respiratory effort Cardio regular rate and regular rhythm Penis: normal penis and circumcised Meatus: meatus normal Scrotum: testes descended bilaterally and cremasteric reflex present; Negative for inguinal hernia, tenderness, erythema, ecchymosis, edematous, scrotal swelling, lesions or scrotal mass Testes: testicular lie normal; Negative for testicular tenderness Back/Spine no CVA tenderness Extremity normal to inspection Neuro oriented x3 and CN's II-XII intact bilaterally Sensorium / Orientation: alert Psych mental status grossly normal Skin General Skin Exam: jaundice; Negative for pallor Lesions: no lesions Rashes: no rashes MDM MDM MDM Narrative Medical decision making narrative: Patient with dysuria. This may be a chemical urethritis versus STI versus other cause. Since this has been going on for 10 days with a normal urinalysis will obtain a CBC and urine for GC and chlamydia. Lab Data Attestation: I reviewed the patient's lab results. Lab results narrative: GC chlamydia are pending. Patient was informed that the cause of his symptoms are unknown. He was referred to urologist. He was given Pyridium for his discomfort. Labs: Laboratory Results - last 24 hr 04/17/21 14:01 Urine Color Yellow Urine Clarity Clear Urine pH 6.5 Ur Specific [place] 1.010 Urine Protein Negative Urine Glucose (UA) Normal Urine Ketones Negative Urine Occult Blood Negative Urine Nitrite Negative Urine Bilirubin Negative Urine Urobilinogen Normal Ur Leukocyte Esterase Negative Urine RBC 0 SEEN Urine WBC 0 SEEN Ur Squamous Epith Cells 0 SEEN Urine Bacteria 0 SEEN Urine Mucus 0 SEEN Discharge Plan Triage Chief Complaint: Complaint ED Provider: Regis Elizabeth Dx/Rx/DC Orders Clinical Impression: Dysuria Instructions: ED Dysuria, Uncertain Cause (Adult) Prescriptions: New phenazopyridine [Pyridium] 200 MG tablet 200 mg PO TID Qty: 10 RF: 0 Primary Care Provider: Minh Marcum Referrals: Naveed Cruz MD [STAFF PHYSICIAN] - 3-5 Days Minh Marcum MD [Primary Care Provider] - Disposition Disposition: Home, Self Care
[2021-04-17 16:53] VITALS: PULSE 62; RESP 15; O2SAT 98
[2021-04-17 17:33] LABS: Chlamydia Trachomatis by PCR Negative (Negative); Neisserai gonorrhoeae by PCR Negative (Negative); Probe Check PASS; Sample Adequacy Control PASS; Specimen Processing Control PASS
== END 2021-04-17 16:53 | disposition home or self-care (01) ==
PROVIDERS: Emergency Provider Emergency Medicine; PCP Family Medicine
DX: R30.0 Dysuria (principal); R10.2 Pelvic and perineal pain
CPT/HCPCS: 81001; 87491; 87591; 99282

== ENCOUNTER 2021-08-15 10:17 | Emergency (ER) | payer BC, SELFPAY ==
[2021-08-15 10:18] VITALS: BP 128/75; PULSE 73; RESP 16; TEMP 36.8; O2SAT 100; BMI 22.8
--- NOTE | 2021-08-15 11:38 | EKG12_ITS ---
Test Reason : CP Blood Pressure : / mmHG Vent. Rate : 058 BPM Atrial Rate : 058 BPM P-R Int : 152 ms QRS Dur : 090 ms QT Int : 404 ms P-R-T Axes : 062 -01 039 degrees QTc Int : 396 ms Sinus bradycardia Otherwise normal ECG Confirmed by JACINTO SURESH, CARINA ([id number]), editor newspaper GUY WYNNE ([id number]) on 08/18/2021 12:55:51 PM Referred By: BETTIE/TORRI Confirmed By:CARINA CASEY MD
--- NOTE | 2021-08-15 11:38 | RAD_ITS ---
STUDY: X-RAY CHEST REASON FOR EXAM: Male, 51 years old. chest pain TECHNIQUE: Single AP portable view of the chest. COMPARISON: 09/19/2020 FINDINGS: The lungs are clear and expanded. There is no demonstrated pleural abnormality. Normal size heart. Normal mediastinum and [place]. Normal visualized pulmonary arteries. Normal visualized aortic arch and descending thoracic aorta. Normal visualized thoracic spine. Normal visualized ribs, clavicles, and shoulders. There is no demonstrated abnormality of the visualized soft tissue structures of the upper abdomen. RAD/Chest 1 View (Portable) IMPRESSION: Normal x-ray examination of the chest. Electronically Signed: Rosendo Chavez MD at 12:39 EST ,
[2021-08-15 12:17] VITALS: BP 114/80; PULSE 60; RESP 20; O2SAT 98
[2021-08-15 12:35] LABS: Absolute Lymphocyte Count 2.25 X10^3/uL (0.83-4.51); Absolute Neutrophil Count 1.7 X10^3/uL (2.0-7.7); Basophil# 0.02 X10^3/uL; Basophil% 0.4 % (0-1); Eosinophil# 0.09 X10^3/uL; Hematocrit 43.2 % (40-54); Hemoglobin 15.6 g/dL (13.0-16.5); Lymphocyte # 2.25 X10^3/ul (0.83-4.51); Lymphocyte % 48.9 % (19-41); Mean Corp Hgb Conc 36.1 g/dL (32-36); Mean Corpuscular Hgb 32.1 pg (27.0-32.0); Mean Corpuscular Volume 88.9 fL (80-94); Mean Platelet Vol. 10.2 fl (6.2-12.0); Monocyte# 0.49 X10^3/uL; Monocyte% 10.7 % (0-10); NRBC Flagged by Analyzer 0 % (0-5); Neutrophil # 1.74 X10^3/uL (2.7-7.7); Neutrophil % 37.8 % (47-70); Platelet Count 206 K/mm3 (150-450); RBC Distribution Width CV 11.5 % (11.6-14.6); RBC Distribution Width SD 36.9 fl (35.1-43.9); Red Blood Count 4.86 M/mm3 (4.6-6.2); White Blood Count 4.6 K/mm3 (4.4-11.0)
--- NOTE | 2021-08-15 12:38 | EDS_ITS ---
HPI History of Present Illness Chief Complaint: Chest Pain Narrative Narrative: 51-year-old male presenting with chest pain. He states on the left side of his chest and sometimes it feels like pinching and other times it feels like a mild ache. This last for seconds. He has no associated symptoms of nausea, diaphoresis, lightheadedness. He denies a cardiac history. He admits to having a small hiatal hernia. At times this does make him nauseous but is not associated with his chest pain. He is not had fever, chills, cough. He does not have abdominal pain. No history of DVT/PE and no risk factors. [facility] Medical History (Updated 08/15/21 @ 10:41 by Chayo Shah) GERD (gastroesophageal reflux disease) Stomach ulcer Home Medications pantoprazole 40 mg PO DAILY 08/15/21 [History Last Taken Unknown] sucralfate 1 g PO BID 08/15/21 [History Last Taken Unknown] Allergy/AdvReac Type Severity Reaction Status Date / Time azithromycin [From Zithromax] Allergy Swelling Verified 01/29/21 14:19 Social History household members: none Smoking Status: Never smoker alcohol intake: never substance use type: does not use ROS ROS ED Constitutional Constitutional ED: Denies chills or fever(s) Eyes Eyes: Denies blurry vision or change in vision ENT ENT ED: Denies rhinorrhea or sore throat Cardiovascular Cardiovascular: Reports as per HPI Respiratory/Chest Respiratory/Chest: Denies cough, dyspnea or sputum Gastrointestinal Gastrointestinal: Denies abdominal pain or nausea Genitourinary Genitourinary ED: Denies dysuria or hematuria Musculoskeletal Musculoskeletal: Denies arthralgias or myalgias Integumentary Denies abscess or rash Neurologic Neurologic: Denies headache(s), paresthesias or weakness EXAM Physical Exam Const Vital Signs: 08/15/21 10:18 08/15/21 10:40 08/15/21 11:38 Temperature 98.2 F Temperature Source Temporal Pulse Rate 73 Respiratory Rate 16 Respiratory Effort Normal Non-Labored Blood Pressure 128/75 H Blood Pressure Mean 92 Pulse Ox 100 Oxygen Delivery Method Room Air 08/15/21 12:17 08/15/21 14:05 Temperature Temperature Source Pulse Rate 60 64 Respiratory Rate 20 H 18 Respiratory Effort Blood Pressure 114/80 122/90 H Blood Pressure Mean 91 100 Pulse Ox 98 98 Oxygen Delivery Method Room Air Positive well developed General Appearance ED: well developed and NAD; Negative for pallor HEENT normocephalic and atraumatic Eyes PERRL and EOMs intact bilaterally Chest Wall inspection of chest normal and palpation of chest normal Resp normal respiratory effort Effort and Inspection: respiratory distress Cardio regular rate and regular rhythm GI normal to inspection, nondistended, normoactive bowel sounds Neuro oriented x3, CN's II-XII intact bilaterally and no sensory deficits noted Sensorium / Orientation: awake and alert Motor Exam: strength 5/5 throughout Psych mental status grossly normal Skin General Skin Exam: Negative for jaundice or pallor Heart Score History: Slightly/Non-Suspicious ECG: Normal Age: >45 - <65 years Risk Factors: No Risk Factors Troponin: </= Normal Limit Score: 1 MDM MDM MDM Narrative Medical decision making narrative: Patient presenting with left-sided chest pain which he describes as pinching versus mild aching. Patient has no shortness of breath, fever, chills. Not diaphoretic or nauseous. EKG on my interpretation shows a sinus bradycardia at 58 bpm without sign of ischemic change. Chest x- ray my interpretation shows no acute cardiopulmonary process the radiologist agree. CBC and BMP are unremarkable. High-sensitivity troponin is 4 and the delta troponin is 4. Patient is PERC negative. Patient counseled on all findings and understands he needs to follow-up with his primary care physician. Patient amenable to this discharge in stable condition. Impression: 1. Chest pain Lab Data Attestation: I reviewed the patient's lab results. Labs: Laboratory Results - last 24 hr 08/15/21 08/15/21 08/15/21 10:36 10:36 13:40 WBC 4.6 RBC 4.86 Hgb 15.6 Hct 43.2 MCV 88.9 MCH 32.1 H MCHC 36.1 H RDW Std Deviation 36.9 RDW Coeff of Niko 11.5 L Plt Count 206 MPV 10.2 Immature Gran % (Auto) 0.200 Neut % (Auto) 37.8 L Lymph % (Auto) 48.9 H Hodgeman % (Auto) 10.7 H Eos % (Auto) 2.0 Baso % (Auto) 0.4 Absolute Neuts (auto) 1.7 L Absolute Lymphs (auto) 2.25 Nucleated RBC % 0 Sodium 140 Potassium 3.6 Chloride 107 Carbon Dioxide 29.0 Anion Gap 4 L BUN 14 Creatinine 1.07 Estim Creat Clear Calc 80.37 Est GFR (MDRD) Af Amer 95 Est GFR (MDRD) Non-Af 78 BUN/Creatinine Ratio 13.1 Glucose 99 Calcium 8.9 Troponin I High Sens 4 4 Radiography Diagnostic Testing: Clinical Impression(s) from Imaging Studies Chest X-Ray 08/15/21 11:38 IMPRESSION: Normal x-ray examination of the chest. Electronically Signed: Rosendo Chavez MD at 12:39 EST , Discharge Plan Triage Chief Complaint: Chest Pain ED Provider: Malik New Dx/Rx/DC Orders Instructions: ED Chest Pain, Noncardiac Prescriptions: No Action sucralfate 1 gram Tablet 1 g PO BID RF: 0 pantoprazole 40 mg Tablet,Delayed Release (Dr/Ec) 40 mg PO DAILY RF: 0 Primary Care Provider: Minh Marcum Referrals: Minh Marcum MD [Primary Care Provider] - Disposition Disposition: Home, Self Care
[2021-08-15 12:51] LABS: Anion Gap 4 (5-15); BUN 14 mg/dL (7-18); BUN/Creat Ratio 13.1 RATIO (10-20); Calcium,Total 8.9 mg/dL (8.5-10.1); Chloride 107 mmol/L (98-107); Creatinine, Serum 1.07 mg/dL (0.70-1.30); EST Glomerular Filtration Rate 78 mL/min (>60); Est Glom Filt Rate - Afr Amer 95 mL/min (>60); Estimated Creatinine Clearance 80.37 ml/min; Glucose 99 mg/dL (74-106); Potassium 3.6 mmol/L (3.5-5.1); Sodium Level 140 mmol/L (136-145); Troponin-I HS 4 pg/mL (3.0-78.0)
[2021-08-15 14:05] VITALS: BP 122/90; PULSE 64; RESP 18; O2SAT 98
[2021-08-15 14:09] LABS: Troponin-I HS 4 pg/mL (3.0-78.0)
[2021-08-15 15:47] VITALS: BP 124/88; PULSE 87; RESP 16; O2SAT 99
== END 2021-08-15 15:48 | disposition home or self-care (01) ==
PROVIDERS: Emergency Provider Student in an Organized Health Care Education/Training Program; PCP Family Medicine; Visit Provider Student in an Organized Health Care Education/Training Program
DX: R07.9 Chest pain, unspecified (principal); K44.9 Diaphragmatic hernia without obstruction or gangrene; R00.1 Bradycardia, unspecified
CPT/HCPCS: 71045; 80048; 84484; 85025; 93005; 99285; A4216

== ENCOUNTER 2021-11-22 17:03 | Emergency (ER) | payer BC, SELFPAY ==
[2021-11-22 17:04] VITALS: BP 116/84; PULSE 60; RESP 16; TEMP 36.8; O2SAT 98; BMI 23.6
--- NOTE | 2021-11-22 17:18 | EX.ED.DYSGE1 ---
HPI History of Present Illness Chief Complaint: Complaint Narrative Narrative: Patient presents with dysuria for the past few days. He has a history of UTIs. He has no testicular pain. He does not have any flank pain. No abdominal pain. He has some tenderness around his rectum. No fevers or chills. No penile discharge. [facility] Medical History (Updated 11/22/21 @ 17:[address] Elmo Lui MD) GERD (gastroesophageal reflux disease) Stomach ulcer Home Medications pantoprazole 40 mg PO DAILY 08/15/21 [History Last Taken Unknown] sucralfate 1 g PO BID 08/15/21 [History Last Taken Unknown] sulfamethoxazole-trimethoprim [Bactrim DS] 1 tab PO BID #14 tab 11/22/21 [Rx Last Taken Unknown] Allergy/AdvReac Type Severity Reaction Status Date / Time azithromycin [From Zithromax] Allergy Swelling Verified 11/22/21 17:04 Social History household members: none Smoking Status: Never smoker alcohol intake: never substance use type: does not use ROS ROS ED ROS Narrative Past medical history: Reviewed Medications: Reviewed Social history: Noncontributory Review of systems: All systems negative except as indicated General: No fever Cardiovascular: No chest pain Respiratory: No shortness of breath or cough Gastrointestinal: No abdominal pain, nausea vomiting or diarrhea Genitourinary: As in HPI Musculoskeletal: Denies myalgias no difficulty with ambulation Skin: No rash Neurological: No memory loss, confusion or any focal weakness Psych: No recent behavioral changes Hematologic: No easy bleeding or easy bruising EXAM Physical Exam Narrative Exam Narrative: Physical exam General: Well nourished, Well developed, No Acute Distress Head: Normocephalic, Atraumatic Eyes: Conjunctiva not pale ENT: Moist mucous membranes Neck: Supple, Nontender, No lymphadenopathy Cardiovascular: Regular rate, Regular rhythm Respiratory: No distress, CTA bilaterally Abdomen: Soft, Nontender, Nondistended : Normal external genitalia. No testicular tenderness. No discharge no rashes seen. Rectum was evaluated, there are no lesions. Normal rectal tone no signs of hemorrhoids. Back: Nontender, Normal Inspection. Negative for: CVA tenderness Extremities: Nontender, No edema Skin: Normal color, No rash Neurological: Alert, Normal Strength, Normal Sensation Psychological: Normal affect Const Vital Signs: 11/22/21 17:04 Temperature 98.2 F Temperature Source Temporal Pulse Rate 60 Respiratory Rate 16 Blood Pressure 116/84 H Blood Pressure Mean 94 Pulse Ox 98 Oxygen Delivery Method Room Air MDM MDM MDM Narrative Medical decision making narrative: Patient is found to have a slight UTI which I will treat, otherwise I believe he can follow-up with his urologist. Lab Data Labs: Laboratory Results - last 24 hr 11/22/21 17:17 Urine Color Yellow Urine Clarity Clear Urine pH 6.0 Ur Specific [place] 1.020 Urine Protein 30 H Urine Glucose (UA) Normal Urine Ketones Negative Urine Occult Blood 10 H Urine Nitrite Positive H Urine Bilirubin 1 H Urine Urobilinogen 4 H Ur Leukocyte Esterase Negative Urine RBC 0 SEEN Urine WBC 0 SEEN Ur Squamous Epith Cells 0 SEEN Urine Bacteria 0 SEEN Urine Mucus 1+ Discharge Plan Triage Chief Complaint: Complaint Other Complaint: Abd Pain ED Provider: Elmo Lui Dx/Rx/DC Orders Clinical Impression: Dysuria, Acute UTI Instructions: Dysuria, Anatomy of the Male Urinary Tract Prescriptions: New sulfamethoxazole-trimethoprim [Bactrim DS] 800-160 mg tablet 1 tab PO BID Qty: 14 RF: 0 No Action sucralfate 1 gram Tablet 1 g PO BID RF: 0 pantoprazole 40 mg Tablet,Delayed Release (Dr/Ec) 40 mg PO DAILY RF: 0 Primary Care Provider: Minh Marcum Referrals: Naveed Cruz MD [STAFF PHYSICIAN] - Minh Marcum MD [Primary Care Provider] - Disposition Disposition: Home, Self Care
[2021-11-22 17:24] LABS: Bacteria 0 SEEN /hpf (None Seen); Red Blood Cells-Urine 0 SEEN /hpf (0-5); Squamous Epithelial Cells - UA 0 SEEN /hpf (0-5); White Blood Cells 0 SEEN /hpf (0-5)
[2021-11-22 17:31] LABS: Color, Urine Yellow (Yellow); Glucose, Dipstick Normal (Normal); Ketone-Dipstick Negative (Negative); Leukocyte Esterase-Dipstick Negative /ul (Negative); Nitrite-Dipstick Positive (Negative); Occult Blood-Urine 10 /ul (Negative); Protein-Dipstick 30 mg/dl (Negative); Urine Clarity Clear (Clear); Urine Urobilinogen 4 mg/dl (Normal)
[2021-11-22 17:32] LABS: Urine Bilirubin Dipstick 1 mg/dL (Negative)
[2021-11-22 17:37] LABS: Mucous, Urine 1+ /hpf (<or=2+)
[2021-11-22] MEDS: Smz/Tmp Ds Tablet 1 TABLET PO (18:37)
== END 2021-11-22 18:39 | disposition home or self-care (01) ==
PROVIDERS: Emergency Provider Emergency Medicine; PCP Family Medicine; Visit Provider Emergency Medicine
DX: N39.0 Urinary tract infection, site not specified (principal); R30.0 Dysuria; K21.9 Gastro-esophageal reflux disease without esophagitis; Z87.442 Personal history of urinary calculi
CPT/HCPCS: 81001; 99283

== ENCOUNTER 2023-12-10 19:38 | Emergency (ER) | payer OTHER, SELFPAY ==
[2023-12-10 19:40] VITALS: BP 124/82; PULSE 69; RESP 18; TEMP 36.6; O2SAT 99; BMI 25.4
--- NOTE | 2023-12-10 19:51 | ED.VIS.LOWEX ---
HPI History of Present Illness HPI Narrative: Healthy 53-year-old male was playing soccer as he was running in a soccer game he stepped in a hole in the ground. Injuring his right hip. Said he was done playing after that. He is never had any hip significant injury or surgery. Denies any other injuries or complaints. Patient is [place]er-speaking is accompanied by his who is the sterilizer operator but he has she understands and speaks pretty good Lao. Chief Complaint: Lower Extremity Injury Informant: patient Occured/Mechanism Mechanism/Context: Yes injury and Yes blunt trauma Onset/Context/Timing Onset: Hours Context: Sudden Onset Timing: Continuous Quality of Pain: Aching Current Severity: Mild Maximum Severity: Mild Associated Symptoms Associated Symptoms: Negative for Parasthesia, Weakness or Loss of Funtion Narrative Narrative: 53-year-old male right hip injury playing soccer about 4 hours ago. 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 GERD (gastroesophageal reflux disease) Stomach ulcer Home Medications ?Medication ?Instructions ?Recorded ?Last Taken ?Type pantoprazole 40 mg tablet,delayed 40 mg PO DAILY 08/15/21 Unknown History release sucralfate 1 gram tablet 1 g PO BID 08/15/21 Unknown History sildenafil 50 mg tablet 50 mg PO DAILY PRN sexual activity 10/20/23 Unknown History Allergy/AdvReac Type Severity Reaction Status Date / Time azithromycin (From Zithromax) Allergy Swelling Verified 12/10/23 19:39 Social History household members: family and none Smoking Status: Never smoker alcohol intake: never substance use type: does not use ROS ROS ED ROS Narrative Denies recent illness. Review of Systems ROS Unobtainable: Denies due to encephalopathy Constitutional Constitutional ED: Denies chills or fever(s) Eyes Eyes: Denies blurry vision ENT ENT ED: Denies ear pain Cardiovascular Cardiovascular: Denies chest pain Respiratory/Chest Respiratory/Chest: Denies cough Gastrointestinal Gastrointestinal: Denies abdominal pain Genitourinary Genitourinary ED: Denies dysuria Musculoskeletal Musculoskeletal: Denies arthralgias, back pain or myalgias Integumentary Denies abscess or Abrasions Neurologic Neurologic: Denies headache(s) Psychiatric Psychiatric: Denies anxiety Endocrine Endocrinology: Denies polydipsia Hematologic/Lymphatic Hematologic/Lymphatic: Denies easy bleeding, easy bruising or lymphadenopathy Allergic/Immunologic Allergic/Immunologic ED: Denies mouth swelling, tongue swelling or urticaria EXAM Physical Exam Narrative Exam Narrative: 53-year-old male no acute distress vital signs stable afebrile. at bedside. HEENT exam unremarkable atraumatic. Neck nontender. Back nontender. Lungs clear to auscultation bilaterally. Heart regular rhythm rate about 70 no murmur. Chest wall and ribs nontender. Abdomen soft nontender. Pelvic girdle intact. No shortening or rotation either hip. He has full flexion extension of both hips mild discomfort with the right. Bilateral knees lower legs ankle feet nontender normal range of motion. Neurologically is awake and alert no focal motor deficits. Const Vital Signs: 12/10/23 19:40 Temperature 97.9 F Temperature Source Temporal Pulse Rate 69 Respiratory Rate 18 Blood Pressure 124/82 H Blood Pressure Mean 96 Pulse Ox 99 Positive well nourished and well developed; Negative for obese, cachectic, contractures or unkempt General Appearance ED: well developed and NAD; Negative for unkempt, cachectic or contractures Nutritional Appearance: Negative for cachectic or obese HEENT Reports moist mucous membranes normocephalic and atraumatic; Negative for trauma or tenderness Eyes PERRL General Eye ED: Negative for other Neck full ROM and supple Thyroid: Negative for tender Lymph Lymphatic: Negative for other Chest Wall inspection of chest normal and palpation of chest normal Chest: Negative for other Resp normal respiratory effort, no retractions and clear to auscultation bilaterally Effort and Inspection: Negative for pain with movement Auscultation: Negative for rales, rhonchi, wheezes or diminished lung sounds Cardio regular rate, regular rhythm, S1 normal heart sound, S2 normal heart sound and no murmurs Rate: Negative for bradycardia or tachycardic Rhythm: Negative for abnormal rhythm Bruits: Negative for other GI non-tender, non-distended and no masses Inspection: Negative for abdominal distention Auscultation: normoactive bowel sounds Palpation: soft; Negative for tender, guarding or rebound tenderness present Bladder / Kidney Exam: No other Back/Spine no CVA tenderness General Back: Negative for CVA tenderness or swelling Cervical Spine: Negative for cervical spine tenderness Thoracic Spine / Upper Back: Negative for thoracic spinal tenderness Lumbar Spine / Lower Back: Negative for lumbar spinal tenderness Extremity normal to inspection and full ROM Extremity Narrative: Mild tenderness of right lateral hip. No deformity. Normal range of motion. General Extremety ED: Negative for cyanosis, edema or weight-bearing difficulty General Extremity: Negative for cyanosis, edema or weight-bearing difficulty Neuro oriented x3, CN's II-XII intact bilaterally, moves all extremities and no sensory deficits noted Sensorium / Orientation: alert, oriented to person, oriented to place and oriented to time Motor Exam: strength 5/5 throughout; Negative for general weakness or strength abnormal Psych mental status grossly normal Appearance: Negative for unkempt Speech: No other Mood & Affect: Negative for anxious Skin Lesions: no lesions Rashes: no rashes Trauma: Negative for abrasion or laceration MDM MDM MDM Narrative Medical decision making narrative: 53-year-old male injured his right hip playing soccer today. X-ray being obtained. His gave him Tylenol at home prior to arrival. Repeat exam unchanged at 8:04 PM. We went over the patient's x-rays. He will be discharged home. Ice to the area. Tylenol Motrin for pain. Follow-up if not improving or return if worse. History & Record Review Discussion w/independent historian: Patient and Family Additional record(s) reviewed:: Prior inpatient record, Prior outpatient record, Prior ED visit and Prior labs Radiography Diagnostic Testing: Right hip pelvis x-ray 3 views, interpreted by myself shows no acute fracture or dislocation of either the pelvis or the right hip or proximal femur. Normal x-ray. I did go over the x-ray with the patient and his . Discharge Plan Triage Chief Complaint: Lower Extremity Injury ED Provider: Nigel Chowdhury Dx/Rx/DC Orders Clinical Impression: Contusion of right hip, Strain of right hip Instructions: ED Soft Tissue Contusion, ED Hip Strain Prescriptions: No Action sildenafil 50 mg tablet 50 mg PO DAILY PRN (Reason: sexual activity) Rx Instructions: administer 30 minutes to 4 hours before activity sucralfate 1 gram Tablet 1 g PO BID pantoprazole 40 mg Tablet,Delayed Release (Dr/Ec) 40 mg PO DAILY Primary Care Provider: Minh Marcum Referrals: Minh Marcum MD [Primary Care Provider] - 1 Week if not improving Activity Restrictions/Additional Instructions: Ice to hip to decrease pain and swelling. Slowly increase activity as tolerated. Motrin and Tylenol for pain and swelling. Most likely will be sore the next several days. If not improving in a week have it reevaluated. Print Language: Lao Disposition Disposition: Home, Self Care
--- NOTE | 2023-12-10 19:55 | RAD_ITS ---
INDICATION: injured palying soccer EXAMINATION/TECHNIQUE: X-RAY - XR Hip Unilateral with Pelvis when performed; 2-3 Views: AP pelvis with AP and frog-leg right hip COMPARISON: CT August 21, 2015 FINDINGS: PELVIC BONES: No displaced fracture, destructive or sclerotic lesions. Note that overlapping bowel shadows may however obscure fine detail. Sacroiliac joints are unremarkable. No widening of the pubic symphysis. No visible iliac spine avulsion. HIPS: Normal bilateral hip alignment with preserved joint spacing. No displaced fracture seen in this frontal view. SOFT TISSUES: No soft tissue swelling or gas. RAD/HIP, UNI W/ Pelvis 2-3 Views IMPRESSION: No evidence of acute injury. Electronically Signed: Christopher Dougherty MD at 20:57 EDT ,
[2023-12-10 20:26] VITALS: BP 116/73; PULSE 71; RESP 16; TEMP 36.6; O2SAT 99
== END 2023-12-10 20:27 | disposition home or self-care (01) ==
PROVIDERS: Emergency Provider Emergency Medicine; PCP Family Medicine; Visit Provider Emergency Medicine
DX: S70.01XA Contusion of right hip, initial encounter (principal); Y92.322 Soccer field as the place of occurrence of the external cause; S73.101A Unspecified sprain of right hip, initial encounter; Y93.66 Activity, soccer; K21.9 Gastro-esophageal reflux disease without esophagitis
CPT/HCPCS: 73502; 99282

== ENCOUNTER → 2024-01-17 | Outpatient (CLI) | payer OTHER, SELFPAY ==
[2024-01-17 17:04] LABS: Absolute Lymphocyte Count 2.12 X10^3/uL (0.83-4.51); Absolute Neutrophil Count 2.2 X10^3/uL (2.0-7.7); Basophil# 0.03 X10^3/uL; Basophil% 0.6 % (0-1); Eosinophil# 0.32 X10^3/uL; Eosinophils% 6.1 % (0-5); Hematocrit 43.2 % (40-54); Hemoglobin 14.8 g/dL (13.0-16.5); Lymphocyte # 2.12 X10^3/ul (0.83-4.51); Lymphocyte % 40.7 % (19-41); Mean Corp Hgb Conc 34.3 g/dL (32-36); Mean Corpuscular Hgb 31.2 pg (27.0-32.0); Mean Corpuscular Volume 90.9 fL (80-94); Mean Platelet Vol. 9.8 fl (6.2-12.0); Monocyte# 0.57 X10^3/uL; Monocyte% 10.9 % (0-10); NRBC Flagged by Analyzer 0 % (0-5); Neutrophil # 2.16 X10^3/uL (2.7-7.7); Neutrophil % 41.5 % (47-70); Platelet Count 235 K/mm3 (150-450); RBC Distribution Width CV 11.6 % (11.6-14.6); RBC Distribution Width SD 38.9 fl (35.1-43.9); Red Blood Count 4.75 M/mm3 (4.6-6.2); White Blood Count 5.2 K/mm3 (4.4-11.0)
[2024-01-17 17:06] LABS: Erythrocyte Sedimentation Rate < 1 mm/hr (0-20)
[2024-01-17 17:33] LABS: ALB/GLOB Ratio 1.2 RATIO (0.9-2.4); AST(SGOT) 22 U/L (15-37); Alanine Aminotransfer ALT/SGPT 31 U/L (16-61); Alkaline Phosphatase 91 U/L (45-117); Anion Gap 5 (5-15); BUN 15 mg/dL (7-18); BUN/Creat Ratio 14.2 RATIO (10-20); CRP < 2.90 mg/L (0.0-3.0); Calcium,Total 9.1 mg/dL (8.5-10.1); Chloride 107 mmol/L (98-107); Creatinine, Serum 1.06 mg/dL (0.70-1.30); EST Glomerular Filtration Rate 78 mL/min (>60); Est Glom Filt Rate - Afr Amer 95 mL/min (>60); Globulin 3.3 g/dL (2.2-4.2); Glucose 87 mg/dL (74-106); Potassium 3.5 mmol/L (3.5-5.1); Protein, Total 7.3 g/dL (6.4-8.2); Sodium Level 142 mmol/L (136-145)
[2024-01-21 22:06] LABS: Beef <0.10 kU/L (Class 0); Chocolate <0.10 kU/L (Class 0); Codfish <0.10 kU/L (Class 0); Corn <0.10 kU/L (Class 0); Egg, Whole <0.10 kU/L (Class 0); Milk (Cow) <0.10 kU/L (Class 0); Mussels <0.10 kU/L (Class 0); Peanut <0.10 kU/L (Class 0); Pork <0.10 kU/L (Class 0); Salmon <0.10 kU/L (Class 0); Shrimp <0.10 kU/L (Class 0); Soybean <0.10 kU/L (Class 0); Tuna <0.10 kU/L (Class 0); Wheat <0.10 kU/L (Class 0)
[2024-01-22 17:07] LABS: ACCA 40 units (0-90); ALCA 23 units (0-60); AMCA 28 units (0-100); Endomysial Antibody IgA Negative (Negative); Immunoglobulin A 125 mg/dL (90-386); gASCA 24 units (0-50); t-Transglutaminase IgA <2 U/mL (0-3)
== END | disposition home or self-care (01) ==
LOC: LAB 16:02
PROVIDERS: PCP Family Medicine; Referring Provider Student in an Organized Health Care Education/Training Program; Visit Provider Student in an Organized Health Care Education/Training Program
DX: R19.7 Diarrhea, unspecified (principal)
CPT/HCPCS: 36415; 80053; 82784; 83516; 85025; 85652; 86003; 86005; 86036; 86140; 86255; 86671

== ENCOUNTER → 2024-01-19 | Outpatient (CLI) | payer OTHER, SELFPAY ==
[2024-01-23 18:08] LABS: Pancreatic Elastase, Fecal 83 (>200)
[2024-01-24 16:09] LABS: Calprotectin, Stool 12 ug/g (0-120)
== END | disposition home or self-care (01) ==
LOC: LABSPEC 08:59
PROVIDERS: PCP Family Medicine; Visit Provider Student in an Organized Health Care Education/Training Program
DX: R19.7 Diarrhea, unspecified (principal); K58.9 Irritable bowel syndrome, unspecified
CPT/HCPCS: 82653; 83630; 83993

== ENCOUNTER 2024-02-08 05:51 | Day surgery (SDC) | payer OTHER, SELFPAY ==
[2024-02-08] VITALS (8 sets, daily range): BP systolic 110–130; BP diastolic 69–90; PULSE 50–54; RESP 16; TEMP 36.1–36.8; O2SAT 100; BMI 24.4
--- NOTE | 2024-02-08 06:56 | PRE.ANES_ITS ---
ASA Classification* ASA Classification ASA Classification: 2 Assessment & Plan Anesthesia* Anesthesia Assessment Anesthesia Assessment: Discussed sedation and/or anesthesia options, risks, benefits, and alternatives with patient/parents/legal guardian/POA. Questions invited. The patient/parents/legal guardian/POA seems to understand and agrees to proceed with anesthesia plan. Reviewed the physical assessment, medical history, allergy history and patient home medications list prior to surgery/procedure/anesthetic and documented any changes. Performed airway and anesthesia risk assessments. Anesthesia Type Anesthesia Type: MAC (see written pre-anesthesia record for full assessment) Anesthesia Focused Assessment* Temperature: 98.3 F Pulse Rate: 51 Blood Pressure: 130/90 Respiratory Rate: 16 Pulse Ox: 100 Airway Assessment Mouth opens: >3 cm Mallampati Score: II Focused Labs Anesthesia Preop lab: CBC WBC 5.2 K/mm3 (4.4-11.0) 01/17/24 16:16 RBC 4.75 M/mm3 (4.6-6.2) 01/17/24 16:16 Hgb 14.8 g/dL (13.0-16.5) 01/17/24 16:16 Hct 43.2 % (40-54) 01/17/24 16:16 Plt Count 235 K/mm3 (150-450) 01/17/24 16:16 CHEMISTRY Potassium 3.5 mmol/L (3.5-5.1) 01/17/24 16:16 Sodium 142 mmol/L (136-145) 01/17/24 16:16 BUN 15 mg/dL (7-18) 01/17/24 16:16 Creatinine 1.06 mg/dL (0.70-1.30) 01/17/24 16:16 Glucose 87 mg/dL (74-106) 01/17/24 16:16 COAG PT 12.9 SECONDS (11.7-14.9) 01/12/15 16:40 Pre-Assessment Diagnosis/Proposed Procedure Planned Operative Procedure(s): EGD/CSCOPE Anesthesia History Anesthesia History - data entry coordinator: Anesthesia History - data entry coordinator Hx Hospitalization No 02/06/24 11:41 Any Problems With Anesthesia Yes: AWAKENED DURING 02/06/24 11:41 PROCEDURE IN THE PAST Cholinesterase deficiency No 02/06/24 11:41 You/Your Family Experience No 02/06/24 11:41 fever (hyperthermia) with Relationship Recent Exposure to Contagious No 02/08/24 06:23 Disease Does patient have nerve No 02/06/24 11:41 stimulator Patient instructed to have device shut off --Does patient have Pacemaker No 02/08/24 06:23 or ICD? When Was Last Pacemaker Check QUESTION #4 FULL TEXT: You/Your Family Experience fever (hyperthermia) with Anesthesia Last Oral Intake Last Oral intake: Last Oral Intake NPO since 03:00 02/08/24 06:23 Meds taken in AM with sips of water? Meds patient instructed to take am of surgery PONV PONV - data entry coordinator: PONV - data entry coordinator Female No 02/06/24 11:41 HX of Motion Sickness No 02/06/24 11:41 HX of N/V After Surgery No 02/06/24 11:41 Non-Smoker Yes 02/06/24 11:41 Duration of Surgery greater No 02/06/24 11:41 than 60 minutes Number of Risk Factors 1 02/06/24 11:41 PONV Score Low Risk 02/06/24 11:41 Height & Weight Height & Weight: Anesthesia: Height & Weight Height 5 ft 8 in 02/08/24 06:23 Weight: 72.8 kg 02/08/24 06:23 Body Mass Index (BMI) 24.4 02/08/24 06:23 Respiratory Assessment Respiratory Assessment - data entry coordinator: Respiratory Tract Infection Hx - data entry coordinator Hx Respiratory Tract Infection No 02/06/24 11:41 STOP Sleep Apnea STOP Sleep Apnea - data entry coordinator: STOP Sleep Apnea - data entry coordinator Hx Hypertension No 02/06/24 11:41 Hx Sleep Apnea No 02/06/24 11:41 CPAP No 08/26/14 22:47 BIPAP No 08/26/14 22:47 Do you snore loudly (louder Yes 02/06/24 11:41 than talking or can be heard Do you often feel tired/ No 02/06/24 11:41 fatigued/ sleepy during daytime? Has anyone observed you stop No 02/06/24 11:41 breathing during sleep? STOP Results Negative 02/06/24 11:41 QUESTION #5 FULL TEXT : Do you snore loudly (louder than talking or can be heard through closed doors)? 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 Specify any problems Hx of Preganancy in last 3 N/A 02/06/24 11:41 Months Nurse Filling Out Transfusion DSCHRIBER 02/06/24 11:41 & Questions: Date: 02/06/24 02/06/24 11:41 Time: 11:42 02/06/24 11:41 Patient unable to answer at this time (ie. confused, unrespo /Reproduction History /Reproductive History - data entry coordinator: /Reproductive Hx- data entry coordinator Hx Now No 02/06/24 11:41 Gestational Age (in weeks): EDC: Hx Hx Para Hx Section SAB No 02/06/24 11:41 Active Medications Active Medications: Current Medications Generic Name Dose Route Start Last Admin Trade Name Freq PRN Reason Stop Dose Admin Lactated Ringer's 1,000 mls @ 15 mls/hr 02/08/24 06:00 02/08/24 06:33 IV 15 mls/hr .Q48H KEVIN Administration PFSH Medical History Loss of hearing Wears glasses Wears partial dentures Alcohol use Non-smoker Acute peptic ulcer Early satiety 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 GERD (gastroesophageal reflux disease) Stomach ulcer Home Medications ?Medication ?Instructions ?Recorded ?Last Taken ?Type sucralfate 1 gram tablet 1 g PO BID 08/15/21 Unknown History sildenafil 50 mg tablet 50 mg PO DAILY PRN sexual activity 10/20/23 Unknown History pantoprazole 40 mg tablet,delayed 40 mg PO DAILY #30 tabs 01/17/24 02/07/24 Rx release [id number]-[id number] 3 cap PO TID #300 caps 01/26/24 Unknown Rx 36,000-114,000-180,000 unit capsule,delay rel (Creon) Allergy/AdvReac Type Severity Reaction Status Date / Time azithromycin (From Zithromax) Allergy Swelling Verified 02/08/24 06:21 Surgical History (Updated 02/06/24 @ 11:46 by Gina Diaz) History of esophagogastroduodenoscopy (EGD) Social History household members: family and none Smoking Status: Never smoker alcohol intake: never substance use type: does not use Review of Systems (Anesthesia) ROS Narrative System reviewed and no additional complaints, except as documented.
--- NOTE | 2024-02-08 07:15 | EGD_PTH ---
PATIENT: HEMA KHAN LOC: EN U#:[id number] AGE/SX: 53/M ROOM: RE02/08/[address]: Dr. Kurt Peters DO : 1970 BED: DIS: 02/08/2024 SPEC #: [id number] RECD: 02/08/24 09:45 STATUS: MICHELE RODRIGUEZ #: [id number] EMIL: 02/08/24 07:[address]: Kurt Peters DEPT: SURGICAL PATHOLOGY RECD BY: Tisha Iglesias ENTERED: 02/08/24 11:27 SP TYPE: EGD BIOPSY OT DR: Dr. Minh Marcum MD Tissues: A - Duodenum, NOS B - Gastric mucous membrane C - Gastric mucous membrane D - Esophagus, NOS E - Ileum, NOS F - COLON BIOPSY Procedures: Surgery Specimen Level IV HEADER OPERATION: Colonoscopy with biopsies, EGD with biopsy PRE-OP DIAGNOSIS: Diarrhea, GERD TISSUE SUBMITTED: A- Duodenum biopsy, B- Gastric antrum biopsy, C- Gastric cardia biopsy, D- Distal esophagus biopsy, E- Terminal ileum biopsy, F- Random colon biopsy MICROSCOPIC DIAGNOSIS A. Duodenum, biopsy: Fragments of duodenal mucosa, no pathologic diagnosis. B. Gastric antrum, biopsy: Mild gastritis. See microscopic description and comment. C. Gastric cardia, biopsy: Minimal gastritis. See microscopic description and comment. D. Distal esophagus, biopsy: Fragments of gastric mucosa with chronic inflammation. Intestinal metaplasia (goblet cell metaplasia) not identified. See comment. E. Terminal ileum, biopsy: Fragments of small intestinal mucosa, no pathologic diagnosis. F. Colon, random biopsy: Fragments of colonic mucosa with focal increase of eosinophils. See comment. NEELIMA/ 02/09/2024 COMMENT B. The results of immunohistochemistry for Helicobacter pylori will be reported separately ([id number]). D. Alcian blue/PAS stain with matched control is used in the evaluation of the specimen. Correlation with clinical, endoscopic findings and appropriate follow up are necessary. This case has been reviewed in consultation with Dr. Mims who concurs with the above diagnosis. MICROSCOPIC DESCRIPTION Slides are reviewed. B. The specimen shows fragments of gastric mucosa with chronic inflammatory cell infiltrates in the lamina propria consisting of lymphocytes and plasma cells, consistent with mild chronic gastritis. C. The specimen shows fragments of gastric mucosa with chronic inflammatory cell infiltrates in the lamina propria consisting of lymphocytes and plasma cells, consistent with minimal chronic gastritis. GROSS DESCRIPTION A. Received in fixative is one container labeled with the patient's name and designated Duodenum biopsy. The specimen consists of multiple irregular fragments of light joseph soft tissue that in aggregate measure 0.5 x 0.5 x 0.1 cm. The specimen is totally submitted in one cassette. B. Received in fixative is one container labeled with the patient's name and designated Gastric antrum biopsy. The specimen consists of one irregular fragment of light joseph soft tissue that measures 0.5 x 0.5 x 0.1 cm. The specimen is totally submitted in one cassette. C. Received in fixative is one container labeled with the patient's name and designated Gastric cardia biopsy. The specimen consists of two irregular fragments of light joseph soft tissue that in aggregate measure 0.8 x 0.5 x 0.1 cm. The specimen is totally submitted in one cassette. D. Received in fixative is one container labeled with the patient's name and designated Distal esophagus biopsy. The specimen consists of two irregular fragments of light joseph soft tissue that in aggregate measure 0.6 x 0.3 x 0.1 cm. The specimen is totally submitted in one cassette. E. Received in fixative is one container labeled with the patient's name and designated Terminal ileum biopsy. The specimen consists of two irregular fragments of light joseph soft tissue that in aggregate measure 0.6 x 0.3 x 0.1 cm. The specimen is totally submitted in one cassette. F. Received in fixative is one container labeled with the patient's name and designated Random colonic biopsy. The specimen consists of multiple irregular fragments of light joseph soft tissue that in aggregate measure 2.5 x 0.5 x 0.1 cm. The specimen is totally submitted in one cassette. NEELIMA/ 02/08/2024 TC:3 CPT:53653l9,43554
--- NOTE | 2024-02-08 07:15 | IMM_PTH ---
PATIENT: HEMA KHAN LOC: EN U#:[id number] AGE/SX: 53/M ROOM: RE02/08/[address]: Dr. Kurt Peters DO : 1970 BED: DIS: 02/08/2024 SPEC #: [id number] RECD: 02/08/24 10:12 STATUS: MICHELE REKvng #: [id number] EMIL: 02/08/24 07:[address]: Kurt Peters DEPT: IMMUNOHISTOCHEMISTRY RECD BY: Carlos Ohara ENTERED: 02/08/24 10:12 SP TYPE: IMMUNO OTHR DR: Dr. Minh Marcum MD Tissues: B - Gastric mucous membrane Procedures: H Pylori (initial) PHYSICIAN & INSTITUTION [place] [id number] SPECIMEN INFORMATION: Tissue Source: B- Gastric antrum biopsy Clinical Info: Diarrhea, GERD Specimen Number: [id number] CPT code: 28751 METHODOLOGY: Deparaffinized sections of prefer/formalin-fixed tissue or PAP/DQ stained slides are incubated with monoclonal/polyclonal antibodies/oligonucleotide probes. Localization is made via biotin free immunoperoxidase method. Appropriate controls are performed and reacted as expected. Results on target cell population are indicated in the following table: RESULTS: ANTIBODY / CLONE RESULT Block B H Pylori (polyclonal) negative These tests were developed and their performance characteristics determined by [facility]. They may not have been cleared or approved by the U.S. Food and Drug Administration. The FDA has determined that such clearance or approval is not necessary. The above immunohistochemical/dualISH markers are ordered and reviewed by the Pathologist. INTERPRETATION: B. Gastric antrum, biopsy: Negative for Helicobacter pylori organisms. NEELIMA/ 02/09/2024
--- NOTE | 2024-02-08 07:32 | HP.PCM_ITS ---
History and Physical Date of Admission: 02/08/24 HEMA KEE, is a 53 M who presents to the office today for establishment with [facility]. He has a history of Singh's esophagus diagnosed in 2008. He has been on protonix and carafate for a long time and was told he would need to be on it the rest of his life. His last EGD was about two years ago and he has not yet had a colonoscopy. He continues to have heartburn at night when he is laying down. He feels acid in his throat and will spit up to feel better. He also complains of abdominal pain and diarrhea. He notices diarrhea is worse with fatty foods and milk. He will have diarrhea occasionally for an entire day. He is not able to quantify how often he is getting the diarrhea. He still has his gallbladder. He denies constipation, melena, hematochezia or n/v. ROS Const Constitutional: Positive for fatigue; No fever(s) or weight change ENT ENT: No difficulty swallowing Cardio Cardiology: Positive for leg pain with exertion Gastro GI: Positive for abdominal pain, bloating, change in bowel habits, diarrhea, heartburn, excessive flatus, nausea/dyspepsia and vomiting; No belching, change in stool character, coffee ground emesis, constipation, cramping, difficulty swallowing, feeling full early, incontinent of stools, Vomiting blood/hematemesis, Blood in stool, loose stools, Black,tarry stools, pain with swallowing or other Musc Musculoskeletal: Positive for joint pain, back pain, muscle weakness, restless legs, leg pain at night and leg pain with exertion Skin Skin: No yellowing of the eye or itchy eyes Neuro Neurology: Positive for restless legs Psych Psychiatric: No anxiety and No depression Endo Endocrine: Positive for fatigue; No weight change Aller/Imm Allergy/Immunologic: No itchy eyes Leo/Lymp Hematologic/Lymphatic: No easy bleeding or easy bruising Exam Const General: cooperative and comfortable Nutritional Appearance: average body habitus and well nourished HENMT Head: normal to inspection Ears: hearing grossly normal bilaterally Nose: external nose normal Face and sinus: normal facial exam Throat: posterior oropharynx normal Eyes General: appearance normal, both eyes and all related structures Neck Neck: normal visual inspection Chest Chest palpation & inspection: normal inspection of the chest Resp Effort & Inspection: normal respiratory effort Cardio Palpation: normal PMI GI Inspection: normal to inspection Auscultation: normal bowel sounds Percussion: normal to percussion Palpation: no hepatosplenomegaly Skin General: no rashes or lesions noted Neuro General: patient alert Extrem General: normal to inspection Psych Affect: normal affect Assessment and Plan Assessment and Plan (1) Diarrhea: Status: Acute Plan: Patient is here today to establish care. He has been having diarrhea and abdominal pain. -Ordered labs to rule out food allergies, EPI, infection, celiac and IBD (2) GERD (gastroesophageal reflux disease): Status: Acute Plan: Patient is here today to establish care for barrets esophagus diagnosed in 2008. He has not had an EGD in two years. -Scheduled patient for EGD and colonoscopy -Explained Barrets esophagus diagnosis and reasoning for staying on PPI therapy -Patient is interested in ablation for Barretts esophagus -He will continue to take protonix 40 daily. Recommended taking famotidine at night for breakthrough heartburn. Orders: Orders IBD Expanded Profile Today R19.7 - Diarrhea, unspecified Erythrocyte Sed Rate Today R19.7 - Diarrhea, unspecified CRP Today R19.7 - Diarrhea, unspecified Allergen, Food Profile 14 Today R19.7 - Diarrhea, unspecified Stool Lactoferrin/WBC Today K58.9 - Irritable bowel syndrome without diarrhea Pancreatic Elastase, Fecal Today R19.7 - Diarrhea, unspecified Celiac Disease Profile Today R19.7 - Diarrhea, unspecified Comprehensive Metabolic Profil Today R19.7 - Diarrhea, unspecified CBC W/Diff, Automated Today R19.7 - Diarrhea, unspecified Calprotectin, Stool Today R19.7 - Diarrhea, unspecified I have examined the patient and the H&P has been reviewed. There are no clinical changes since date of exam.
--- NOTE | 2024-02-08 08:11 | OP.EGD_ITS ---
Patient Name: Lucas Fung Procedure Date: 02/08/2024 7:30 AM Date of : 1970 Age: 53 Procedure: Upper GI endoscopy Indications: Epigastric abdominal pain, Dyspepsia, Suspected esophageal reflux Providers: Kurt Peters DO Referring MD: Minh Marcum Medicines: Monitored Anesthesia Care Patient Profile: This is a 53 year old male. Refer to note in patient chart for documentation of history and physical. Patient has symptoms of chronic epigastric abdominal pain, chronic dyspepsia and chronic heartburn. Complications: No immediate complications. Procedure: Pre-Anesthesia Assessment: - Prior to the procedure, a History and Physical was performed, and patient medications and allergies were reviewed. The patient is competent. The risks and benefits of the procedure and the sedation options and risks were discussed with the patient. All questions were answered and informed consent was obtained. Patient identification and proposed procedure were verified by the physician in the pre-procedure area. Mental Status Examination: alert and oriented. Airway Examination: normal oropharyngeal airway and neck mobility. Respiratory Examination: clear to auscultation. CV Examination: normal. Prophylactic Antibiotics: The patient does not require prophylactic antibiotics. Prior Anticoagulants: The patient has taken no anticoagulant or antiplatelet agents. ASA Grade Assessment: II - A patient with mild systemic disease. After reviewing the risks and benefits, the patient was deemed in satisfactory condition to undergo the procedure. The anesthesia plan was to use monitored anesthesia care (MAC). Immediately prior to administration of medications, the patient was re-assessed for adequacy to receive sedatives. The heart rate, respiratory rate, oxygen saturations, blood pressure, adequacy of pulmonary ventilation, and response to care were monitored throughout the procedure. The physical status of the patient was re-assessed after the procedure. After obtaining informed consent, the endoscope was passed under direct vision. Throughout the procedure, the patient's blood pressure, pulse, and oxygen saturations were monitored continuously. The colonoscope was introduced through the mouth, and advanced to the second part of duodenum. The upper GI endoscopy was accomplished without difficulty. The patient tolerated the procedure well. Scope In: 7:41:01 AM Scope Out: 7:47:18 AM Total Procedure Duration Time 0 hours 6 minutes 17 seconds Findings: The Z-line was irregular and was found 40 cm from the incisors. Biopsies were taken with a cold forceps for histology. Verification of patient identification for the specimen was done. Estimated blood loss was minimal. Patchy mild inflammation characterized by erythema was found in the cardia and in the gastric antrum. Biopsies were taken with a cold forceps for histology. Verification of patient identification for the specimen was done. Estimated blood loss was minimal. Biopsies were taken with a cold forceps for Helicobacter pylori testing. Verification of patient identification for the specimen was done. Estimated blood loss was minimal. No gross lesions were noted in the second portion of the duodenum. Biopsies were taken with a cold forceps for histology. Verification of patient identification for the specimen was done. Estimated blood loss was minimal. Impression: - Z-line irregular, 40 cm from the incisors. Biopsied. - Chronic gastritis. Biopsied. - No gross lesions in the second portion of the duodenum. Biopsied. Recommendation: - Discharge patient to home. - Resume previous diet. - Continue present medications. - Await pathology results. Procedure Code(s): --- Professional --- 17269, Esophagogastroduodenoscopy, flexible, transoral; with biopsy, single or multiple CPT copyright 2021 [employer]. All rights reserved. The codes documented in this report are preliminary and upon recreation technician review may be revised to meet current compliance requirements. Kurt Peters DO 02/08/2024 8:11:23 AM This report has been signed electronically. Number of Addenda: 0 Note Initiated On: 02/08/2024 7:30 AM
--- NOTE | 2024-02-08 08:12 | OP.CCLET_ITS ---
02/08/2024 Minh Marcum Re : Upper GI endoscopy procedure for Lucas Fung Dear Jossue This procedure was performed on January. My impressions and recommendations are as follows: Impressions : - Z-line irregular, 40 cm from the incisors. Biopsied. - Chronic gastritis. Biopsied. - No gross lesions in the second portion of the duodenum. Biopsied. Recommendations : - Discharge patient to home. - Resume previous diet. - Continue present medications. - Await pathology results. My findings are described in the full procedure note, which is enclosed. If I can be of further assistance, please feel free to contact me at . Sincerely, Kurt Peters, 02/08/2024 8:11:23 AM This report has been signed electronically.
--- NOTE | 2024-02-08 08:14 | OP.COLON_ITS ---
Patient Name: Lucas Fung Procedure Date: 02/08/2024 7:47 AM Date of : 1970 Age: 53 Procedure: Colonoscopy Indications: Clinically significant diarrhea of unexplained origin Providers: Kurt Peters DO Referring MD: Minh Marcum Medicines: Monitored Anesthesia Care Patient Profile: This is a 53 year old male. Refer to note in patient chart for documentation of history and physical. Patient has symptoms of chronic epigastric abdominal pain, chronic dyspepsia and chronic heartburn. Last Colonoscopy: none. The patient's first colonoscopy is today. Complications: No immediate complications. Procedure: Pre-Anesthesia Assessment: - Prior to the procedure, a History and Physical was performed, and patient medications and allergies were reviewed. The patient is competent. The risks and benefits of the procedure and the sedation options and risks were discussed with the patient. All questions were answered and informed consent was obtained. Patient identification and proposed procedure were verified by the physician in the pre-procedure area. Mental Status Examination: alert and oriented. Airway Examination: normal oropharyngeal airway and neck mobility. Respiratory Examination: clear to auscultation. CV Examination: normal. Prophylactic Antibiotics: The patient does not require prophylactic antibiotics. Prior Anticoagulants: The patient has taken no anticoagulant or antiplatelet agents. ASA Grade Assessment: II - A patient with mild systemic disease. After reviewing the risks and benefits, the patient was deemed in satisfactory condition to undergo the procedure. The anesthesia plan was to use monitored anesthesia care (MAC). Immediately prior to administration of medications, the patient was re-assessed for adequacy to receive sedatives. The heart rate, respiratory rate, oxygen saturations, blood pressure, adequacy of pulmonary ventilation, and response to care were monitored throughout the procedure. The physical status of the patient was re-assessed after the procedure. After I obtained informed consent, the scope was passed under direct vision. Throughout the procedure, the patient's blood pressure, pulse, and oxygen saturations were monitored continuously. The colonoscope was introduced through the anus and advanced to the terminal ileum. The colonoscopy was performed without difficulty. The patient tolerated the procedure well. The quality of the bowel preparation was adequate. The terminal ileum, ileocecal valve, appendiceal orifice, and rectum were photographed. Scope In: 7:48:35 AM Scope Withdrawal Time 0 hours 15 minutes 17 seconds Scope Out: 8:05:53 AM Total Procedure Duration Time 0 hours 17 minutes 18 seconds Findings: The perianal and digital rectal examinations were normal. An area of mildly congested mucosa was found in the rectum, in the recto-sigmoid colon, in the sigmoid colon and at the hepatic flexure. Biopsies were taken with a cold forceps for histology. Verification of patient identification for the specimen was done. Estimated blood loss was minimal. The terminal ileum appeared normal. Biopsies were taken with a cold forceps for histology. Verification of patient identification for the specimen was done. Estimated blood loss was minimal. Impression: - Congested mucosa in the rectum, in the recto-sigmoid colon, in the sigmoid colon and at the hepatic flexure. Biopsied. - The examined portion of the ileum was normal. Biopsied. Recommendation: - Discharge patient to home. - Resume previous diet. - Continue present medications. - Await pathology results. - Repeat colonoscopy in 10 years for screening purposes. Procedure Code(s): --- Professional --- 21710, Colonoscopy, flexible; with biopsy, single or multiple CPT copyright 2021 [employer] [place] [employer]. All rights reserved. The codes documented in this report are preliminary and upon professional fee coder review may be revised to meet current compliance requirements. Kurt Peters DO 02/08/2024 8:13:50 AM This report has been signed electronically. Number of Addenda: 0 Note Initiated On: 02/08/2024 7:47 AM
--- NOTE | 2024-02-08 08:14 | OP.CCLET_ITS ---
02/08/2024 Minh Marcum Re : Colonoscopy procedure for Lucas Fung Dear Jossue This procedure was performed on January. My impressions and recommendations are as follows: Impressions : - Congested mucosa in the rectum, in the recto-sigmoid colon, in the sigmoid colon and at the hepatic flexure. Biopsied. - The examined portion of the ileum was normal. Biopsied. Recommendations : - Discharge patient to home. - Resume previous diet. - Continue present medications. - Await pathology results. - Repeat colonoscopy in 10 years for screening purposes. My findings are described in the full procedure note, which is enclosed. If I can be of further assistance, please feel free to contact me at . Sincerely, Kurt Peters, 02/08/2024 8:13:50 AM This report has been signed electronically.
--- NOTE | 2024-02-08 08:15 | PCM.POST.ANE ---
Anesthesia: Postop Eval I Current Vital Signs Temperature: 97 F Pulse Rate: 54 Blood Pressure: 113/82 Respiratory Rate: 16 Pulse Ox: 100 Oxygen Delivery Method: Room Air Assessment Airway patent: Yes Spontaneous unlabored respirations: Yes Mental status: Awake and Calm nausea: No Vomiting: No Anesthesia Complication: No Fluid Hydration Crystalloid volume administer (ml): 900 Total IV fluid infused: 900 Progress Note Anesthesia document: Postop Eval 1 completed: Yes
--- NOTE | 2024-02-08 08:16 | PCM.POSTANE2 ---
Anesthesia Postop Eval I Sum Postop Eval Completion status Anesthesia document: Postop Eval 1 completed: Yes Anesthesia Postop Eval I Summary Anesthesia Postop Eval I Summary: Anesthesia Postop Eval I: Assessment Summary Airway patent Yes 02/08/24 08:16 [email or web address] Spontaneous unlabored Yes 02/08/24 08:16 [email or web address] respirations Mental status Awake,Calm 02/08/24 08:16 [email or web address] nausea No 02/08/24 08:16 [email or web address] Vomiting No 02/08/24 08:16 [email or web address] Anesthesia Postop Eval I: Fluid Summary Crystalloid volume administer 900 02/08/24 08:16 [email or web address] (ml) Colloids volume administered ( ml) Blood Product volume administered (ml) Total IV fluid infused 900 02/08/24 08:16 [email or web address] Anesthesia Postop Eval I: Summary Notes Anesthesia Complication No 02/08/24 08:16 [email or web address] Anesthesia Complication Comment: Post-operative progress note Anesthesia: Postop Eval II Evaluation Mental status: Awake Pain Level: 0 nausea: No Vomiting: No
== END 2024-02-08 08:49 | disposition home or self-care (01) ==
LOC: EN 05:51 → AC 05:52
PROVIDERS: PCP Family Medicine; Referring Provider Family Medicine; Visit Provider Internal Medicine Gastroenterology
PROC: 0DJD8ZZ Inspection of Lower Intestinal Tract, Via Natural or Artificial Opening Endoscopic (ICD-10-PCS; CPT 45378; principal; 2024-02-08 07:10)
DX: K21.9 Gastro-esophageal reflux disease without esophagitis (principal); R19.7 Diarrhea, unspecified; K29.50 Unspecified chronic gastritis without bleeding; Z79.899 Other long term (current) drug therapy
CPT/HCPCS: 43239; 45380; 88305; 88342; J7120; J2405

== ENCOUNTER → 2024-05-06 | Outpatient (CLI) | payer OTHER, SELFPAY | END | disposition home or self-care (01) | PROVIDERS: PCP Family Medicine; Referring Provider Physician Assistant; Visit Provider Physician Assistant | DX: R52 Pain, unspecified (principal) | CPT/HCPCS: 73030 ==

== ENCOUNTER 2024-06-12 17:00 | Outpatient (RCR) | payer OTHER, SELFPAY ==
--- NOTE | 2024-05-15 17:51 | HP.PTEVAL_ITS ---
Patient's Visit Information Visit Information Visit Information: HEMA KEE is a 53 year old M referred to Physical Therapy by NICOLLE Alarcon with a diagnosis of Strain of L shoulder. Date of Evaluation: 05/15/24 Physical Therapist: KILEY Cooper Visit Plan Frequency: 2x /Week Duration: 4 Weeks Plan: 2X/ week for 4 weeks for L shoulder PROM, AAROM, AROM, scapular and RC str ength, postural exercises with HEP HEP: supine wand flex, Supine wand ER with a towel, standing wand ER and standing wand IR Subjective Subjective: He is having L shoulder pain. He is R handed. He started having pain about a month ago. It feels that he has pain with ER and ABD and has pain over the front, top and back of the L shoulder. He has no N&T. They did an x- ray and nothing showed up. He was given anti-inflamm and they helped a little bit. He can not sleep on his L shoulder. Pain L shoulder pain: Pain Intensity (Out of 10): 5 Objective Objective: R handed R 95# and L 86# UE AROM: R shoulder flex 170 and L 140 R shoulder ABD 180 and L 150 R shoulder IR T12 and L L1 R shoulder ER 30 and L 20 UE MMT: R shoulder flex 10.6 and L 9.1 R shoulder ABD 9.6 and L 8.9 R shoulder ER 13.3 and L 11.4 R shoulder IR 13.5 and L 13.4 PROM tight at end range flexion on the L and slight pain. Pt has pain with ER at 30 degrees abd starting at 25 degrees ER. Palpation: tender under anterior acromion on the L Balance/Special Test Scores Quick DASH Score: 56.8175 Goals Goal 1:: I HEP Goal Time Frame: 4-6 Weeks Goal 2:: Increase L shoulder AROM (at the time of the eval: UE AROM: R shoulder flex 170 and L 140 R shoulder ABD 180 and L 150 R shoulder IR T12 and L L1 R shoulder ER 30 and L 20) Goal Time Frame: 4-6 Weeks Goal 3:: Be able to reach his L arm overhead and behind back with no pain Goal Time Frame: 4-6 Weeks Goal 4:: Sit with upright posture and be able to recognize poor posture and correct it Goal Time Frame: 4-6 Weeks Rehabilitation Potential Rehabilitation Potential: Good Anticipated Interventions Patient/Client Instruction: Educate patient on: Condition and Plan of Care For the Purpose of:: To decrease pain, To decrease swelling/inflammation, To increase ROM, To improve muscle performance and motor function, To improve ability to perform ADL's, To improve performance and independence with ADL's, To decrease level of supervision to perform tasks, To improve ability of physical actions for home/community/work/leisure, To improve health of tissue, To decrease soft tissue restriction and To increase flexibility/ROM Therapeutic Exercise to Include: Strength training, Postural training, Flexibilty training, Passive ROM, Active ROM and Scapular Strength/Stabilization For the Purpose of:: To decrease pain, To increase ROM, To improve nutrient delivery to tissue, To improve muscle performance and motor function, To increase tolerance to activity/condition/position, To improve performance and independence with ADL's, To decrease level of supervision to perform tasks, To improve health of tissue, To decrease soft tissue restriction and To increase flexibility/ROM Manual Therapy Techniques to Include: Passive ROM For the Purpose of:: To increase ROM, To improve nutrient delivery to tissue and To improve ability to perform ADL's Cryotherapy (ice pack, ice massage): Yes Thermo therapy (hot pack): Yes For the Purpose of:: To decrease pain, To decrease swelling/inflammation, To increase ROM and To improve nutrient delivery to tissue Text: Thank you for the opportunity to evaluate your patient. For Medicare and Medicare HMO plans, please review the plan of care and approve it. It will need to be FAXED BACK to us at [phone] for Medicare purposes. For Medicare only, by signing this I certify the plan of care. Please let me know if there are questions or concerns regarding this plan of care. Physician Signature: Date:
--- NOTE | 2024-08-27 07:51 | HP.PT.NRP ---
Patient Information Patient Information: HEMA KEE was seen in my office for initial evaluation on 05/15/24. The following Plan of Care was established for this patient: POC Established Initial Frequency: 2x /Week Initial Duration: 4 Weeks Anticipated Interventions Patient/Client Instruction: Educate patient on: Condition and Plan of Care For the Purpose of:: To decrease pain, To decrease swelling/inflammation, To increase ROM, To improve muscle performance and motor function, To improve ability to perform ADL's, To improve performance and independence with ADL's, To decrease level of supervision to perform tasks, To improve ability of physical actions for home/community/work/leisure, To improve health of tissue, To decrease soft tissue restriction and To increase flexibility/ROM Therapeutic Exercise to Include: Strength training, Postural training, Flexibilty training, Passive ROM, Active ROM and Scapular Strength/Stabilization For the Purpose of:: To decrease pain, To increase ROM, To improve nutrient delivery to tissue, To improve muscle performance and motor function, To increase tolerance to activity/condition/position, To improve performance and independence with ADL's, To decrease level of supervision to perform tasks, To improve health of tissue, To decrease soft tissue restriction and To increase flexibility/ROM Manual Therapy Techniques to Include: Passive ROM For the Purpose of:: To increase ROM, To improve nutrient delivery to tissue and To improve ability to perform ADL's Cryotherapy (ice pack, ice massage): Yes Thermo therapy (hot pack): Yes For the Purpose of:: To decrease pain, To decrease swelling/inflammation, To increase ROM and To improve nutrient delivery to tissue Last Seen Last Seen: This patient was last seen in our office 06/12/24. Pertinent comments regarding their Physical therapy will appear below: PABLO PT At this point I will be discontinuing this patient from physical therapy. I would be happy to see this patient again in the future if found appropriate by the physician. Thank you! Lilibeth Gonzales, KILEY Balance/Gait/Functional tests Balance/Special Test Scores Quick DASH Score: [phone]
== END 2024-06-12 19:00 | disposition home or self-care (01) ==
LOC: PT 17:00
PROVIDERS: PCP Family Medicine; Referring Provider Physician Assistant; Visit Provider Physician Assistant
DX: S46.912D Strain of unspecified muscle, fascia and tendon at shoulder and upper arm level, left arm, subsequent encounter (principal)
CPT/HCPCS: 97035; 97110; 97140; 97161

== ENCOUNTER → 2024-08-10 | Outpatient (CLI) | payer OTHER, SELFPAY ==
[2024-08-10 07:49] LABS: Absolute Lymphocyte Count 1.71 X10^3/uL (0.83-4.51); Absolute Neutrophil Count 3.6 X10^3/uL (2.0-7.7); Basophil# 0.02 X10^3/uL; Basophil% 0.3 % (0-1); Eosinophil# 0.13 X10^3/uL; Eosinophils% 2.2 % (0-5); Hematocrit 40.2 % (40-54); Hemoglobin 14.3 g/dL (13.0-16.5); Lymphocyte # 1.71 X10^3/ul (0.83-4.51); Lymphocyte % 28.6 % (19-41); Mean Corp Hgb Conc 35.6 g/dL (32-36); Mean Corpuscular Hgb 31.6 pg (27.0-32.0); Mean Corpuscular Volume 88.9 fL (80-94); Mean Platelet Vol. 9.8 fl (6.2-12.0); Monocyte# 0.53 X10^3/uL; Monocyte% 8.9 % (0-10); NRBC Flagged by Analyzer 0 % (0-5); Neutrophil # 3.56 X10^3/uL (2.7-7.7); Neutrophil % 59.7 % (47-70); Platelet Count 201 K/mm3 (150-450); RBC Distribution Width CV 11.7 % (11.6-14.6); RBC Distribution Width SD 37.4 fl (35.1-43.9); Red Blood Count 4.52 M/mm3 (4.6-6.2)
[2024-08-10 08:24] LABS: ALB/GLOB Ratio 1.3 RATIO (0.9-2.4); AST(SGOT) 21 U/L (15-37); Alanine Aminotransfer ALT/SGPT 38 U/L (16-61); Albumin, Serum 3.9 g/dL (3.2-5.0); Alkaline Phosphatase 75 U/L (45-117); Anion Gap 4 (5-15); BUN 17 mg/dL (7-18); BUN/Creat Ratio 19.9 RATIO (10-20); Chloride 108 mmol/L (98-107); Cholesterol 127 mg/dL (200); Creatinine, Serum 0.85 mg/dL (0.70-1.30); EST Glomerular Filtration Rate 100 mL/min (>60); Est Glom Filt Rate - Afr Amer 121 mL/min (>60); Globulin 3.1 g/dL (2.2-4.2); Glucose 103 mg/dL (74-106); High Density Lipoprotein 45 mg/dL; Potassium 3.9 mmol/L (3.5-5.1); Sodium Level 142 mmol/L (136-145); Triglycerides 92 mg/dL; Very Low Density Lipoprotein 18 mg/dL (5-40)
== END | disposition home or self-care (01) ==
LOC: LAB 07:21
PROVIDERS: PCP Family Medicine; Referring Provider Family Medicine; Visit Provider Family Medicine
DX: Z00.00 Encounter for general adult medical examination without abnormal findings (principal); L50.9 Urticaria, unspecified; K21.9 Gastro-esophageal reflux disease without esophagitis
CPT/HCPCS: 36415; 80053; 80061; 85025

== ENCOUNTER → 2024-09-05 | Outpatient (CLI) | payer OTHER, SELFPAY ==
[2024-09-05 21:17] LABS: Vitamin D,25 Hydroxy 20.9 ng/mL (30-100)
[2024-09-05 21:21] LABS: Rheumatoid Factor < 10.0 IU/mL (<15)
[2024-09-09 16:08] LABS: ANTINUCLEAR ANTIBODIES DIRECT Positive (Negative); Anti-Centromere B Ab <0.2 AI (0.0-0.9); Anti-Chromatin <0.2 AI (0.0-0.9); Anti-Jo <0.2 AI (0.0-0.9); Anti-Scleroderma-70 AB <0.2 AI (0.0-0.9); Anti-dsDNA Ab 52 IU/mL (0-9); RNP Ab 0.7 AI (0.0-0.9); SJOGREN'S Anti-SS-A test < 0.2 AI (0.0-0.9); SJOGREN'S Anti-SS-B test < 0.2 AI (0.0-0.9); Smith Ab <0.2 AI (0.0-0.9)
[2024-09-11 02:07] LABS: Thyroid Peroxidase AB < 9 IU/mL (0-34)
== END | disposition home or self-care (01) ==
LOC: BFHLAB 16:18
PROVIDERS: PCP Family Medicine; Visit Provider Specialist
DX: L50.1 Idiopathic urticaria (principal); E55.9 Vitamin D deficiency, unspecified; E07.9 Disorder of thyroid, unspecified
CPT/HCPCS: 36415; 82306; 83520; 84443; 86038; 86225; 86235; 86376; 86431

== ENCOUNTER → 2024-10-19 | Outpatient (CLI) | payer OTHER, SELFPAY ==
--- NOTE | 2024-10-19 07:31 | MRI_ITS ---
EXAM: MRI left shoulder CLINICAL HISTORY: Shoulder pain COMPARISON: None TECHNIQUE: Multiplanar spin echo aneurysms images of the left shoulder were obtained on a [place] strength magnet FINDINGS: Mild supraspinatus and infraspinatus tendinosis and peritendinitis but no macro tear. Subscapularis tendon is normal. No muscular atrophy. Long head of the biceps tendon is intact. No labral tear. No other abnormality of the glenohumeral joint. Mild acromioclavicular joint arthrosis with capsulitis. Anterolateral downsloping acromion and thickening of the coracoacromial ligament produces lateral outlet stenosis. Type 2 acromion. MRI/Upper Ext Joint Only(Routine) IMPRESSION: Mild supraspinatus and infraspinatus tendinosis and peritendinitis but no macro tear or muscular atrophy. Mild acromioclavicular joint arthrosis with capsulitis. Anterolateral downsloping acromion with thickening of the coracoacromial ligame nt produces lateral outlet stenosis. Reading Location: [id number]
== END | disposition home or self-care (01) ==
PROVIDERS: PCP Family Medicine; Referring Provider Family Medicine; Visit Provider Family Medicine
DX: M75.102 Unspecified rotator cuff tear or rupture of left shoulder, not specified as traumatic (principal)
CPT/HCPCS: 73221